=== PATIENT | female | born 1990 | race Caucasian/White ===

== ENCOUNTER 2016-03-13 15:01 | Emergency (ER) | payer OTHER ==
[~2016-03-13] VITALS: Ht 180.3 cm; Wt 171.2 kg
[~2016-03-13 15:01] MED LIST: ABILIFY10 MG PO; AMBIEN CR6.25 MG PO; AMITIZA24 MICROGR PO; ASPIR-LOW81 MG PO; AYGESTIN5 MG PO; BACLOFEN10 MG PO; BENTYL10 MG PO; BENTYL20 MG PO; BUSPAR10 MG PO; CAMILA0.35 MG PO; CATAPRES0.2 MG PO; CITRATE OF MAG296 ML PO; CLARITIN,ALAVAR10 MG PO; CLARITIN-D 21 TABLET PO; COGENTIN0.5 MG PO; COLACE100 MG PO; COUMADIN10 MG PO; COUMADIN7.5 MG PO; DEPAKOTE250 MG PO; DESYREL 150 MG150 MG PO; DESYREL100 MG PO; DILAUDID2 MG PO; EFFEXOR XR150 MG PO; ELIQUIS2.5 MG PO; FANAPT8 MG PO; FIBER SELECT G1 EACH PO; FIBER500 MG PO; FLEXERIL10 MG PO; GABAPENTIN400 MG PO; GABAPENTIN800 MG PO; GEODON40 MG PO; INDERAL20 MG PO; INDERAL60 MG PO; INDOCIN SR75 MG PO; INDOCIN25 MG PO; INDOCIN50 MG PO; KLONOPIN0.5 M1 PO; KLONOPIN1 MG PO; KLONOPIN2 MG PO; LAMICTAL100 MG PO; LAMICTAL200 MG PO; LEVAQUIN750 MG PO; LEVSIN0.125 MG PO; LEXAPRO10 MG PO; LIDODERM 5% P1 PATCH TD; LITHIUM CARBON300 M1 PO; LITHIUM CARBON600 MG PO; LO LOESTRIN FE1 EACH PO; LYRICA50 MG PO; MACROBID100 MG PO; MELATONIN10 M2 PO; MINOCIN100 MG PO; MIRENA52 MG IY; MOBIC15 MG PO; MOBIC7.5 MG PO; MULTI VITAMIN1 EACH PO; MULTIVITAMIN1 EAC2 PO; NALTREXONE HCL50 MG PO; NAPROXEN500 M1 PO; NAPROXEN500 MG PO; NEURONTIN300 MG PO; NICOTINE PATCH1 EAC2 TD; NON-ASPIRIN EX500 MG PO; NORETHINDRONE AC5 MG PO; OMEPRAZOLE40 M1 PO; PAIN & FEVER325 MG PO; PAZEO2.5 ML BOTH EYES; PERCOCET 5/31 TABLET PO; PREDNISONE10 MG PO; PREDNISONE20 MG PO; PRILOSEC20 MG PO; PRILOSEC40 MG PO; PROPRANOLOL HCL60 M1 PO; PROZAC40 MG PO; RESTASIS 01 DROP/0.4 BOTH EYES; RESTORIL15 MG PO; RETIN A TP; SENNA8.6 MG PO; SEROQUEL100 MG PO; SOMA350 MG PO; TEGRETOL-XR,CA200 MG PO; TOPAMAX100 MG PO; TOPAMAX200 MG PO; TOPIRAMATE100 MG PO; TORADOL10 MG PO; TRAZODONE HCL100 MG PO; ULTRAM50 MG PO; VALIUM2 MG PO; VISTARIL25 M1 PO; VITAMIN B-121000 MCG PO; VITAMIN B-122000 MC1 PO; VITAMIN B-6200 MG PO; VITAMIN B12-FO1 EACH PO; VITAMIN D31000 UNIT PO; VITAMIN D32000 UNIT PO; WARFARIN PO; WELLBUTRIN SR150 MG PO; WELLBUTRIN XL150 MG PO; WELLBUTRIN XL300 MG PO; XANAX0.5 MG PO; XARELTO10 MG PO; ZANTAC150 M1 PO; ZANTAC150 MG PO; ZANTAC300 MG PO; ZOFRAN ODT8 MG PO; ZOFRAN4 MG PO; ZOLOFT PO; ZOLOFT100 MG PO; ZYRTEC10 M3 PO
[2016-03-13] MEDS ORDERED: NYSTATIN-TRIAMC15 G1 TP (17:12)
[2016-03-13 17:39] VITALS: BP 133/98
== END 2016-03-13 17:39 | disposition home or self-care (01) ==
LOC: EME 15:01
DX: L30.9 Dermatitis, unspecified (principal); Z87.891 Personal history of nicotine dependence; Z88.6 Allergy status to analgesic agent; Z88.8 Allergy status to other drugs, medicaments and biological substances
CPT/HCPCS: 99281; 99283

== ENCOUNTER 2016-03-25 18:56 | Observation (INO) | payer OTHER ==
[~2016-03-25] VITALS: Ht 181.6 cm; Wt 172.9 kg
[~2016-03-25 18:56] MED LIST changes: +NYSTATIN-TRIAMC15 G1 TP
[2016-03-25 19:53] LABS: HEMATOCRIT 41.8 % (36.0-46.0); MCH 27.9 PG (29.0-34.0); MCHC 34.2 G/DL (30.0-36.0); MCV 81.5 FL (83-99); PLATELET COUNT 195 K/uL (156-360); RBC DIS.WIDTH-SD 37.9 % (39-53); RED BLOOD COUNT 5.13 M/uL (3.80-5.20); WHITE BLOOD COUNT 5.3 K/uL (4.1-10.2)
[2016-03-25 19:57] LABS: ADD MIUA? YES; BILIRUBIN NEGATIVE; BLOOD NEGATIVE; COLOR YELLOW ((YELLOW)); GLUCOSE (STRIP) NEGATIVE; KETONES 5; LEUKOCYTES NEGATIVE; NITRITE NEGATIVE; PROTEIN (STRIP) 30; SPECIFIC GRAVITY 1.032 (1.000-1.030); UROBILINOGEN 0.2 MG/DL (0.2-1.0)
[2016-03-25 20:04] LABS: CHLORIDE 110 mEq/L (99-109); POTASSIUM 4.1 mEq/L (3.7-5.4); SODIUM 138 mEq/L (136-147)
[2016-03-25 20:06] LABS: GLUCOSE 84 mg/dL (70-99)
[2016-03-25 20:08] LABS: ANION GAP 8 MEQ/L (2-14); TOTAL BILIRUBIN 0.3 mg/dL (0.0-1.0)
[2016-03-25 20:10] LABS: ALKALINE PHOSPHATASE 64 IU/L (3-129); GFR ESTIMATE (CALCULATED) > 59 mL/min/
[2016-03-25 20:11] LABS: UREA NITROGEN (BUN) 11 mg/dL (9-23)
[2016-03-25 20:11] LABS: BACTERIA RARE /HPF; CALCIUM OXALATE CRYSTALS 4+ /HPF; CRYSTALS PRESENT; EPITHELIAL CELLS RARE /HPF; HYALINE CASTS 0-5 /LPF; MUCUS 1+ /LPF; RED BLOOD CELLS 0-5 /HPF (0-5); UCUL ADDED? NO
[2016-03-25 20:12] LABS: CASTS PRESENT /LPF
[2016-03-25 20:21] LABS: QUANTITATIVE HCG < 4.0 MIU/ML
[2016-03-25 21:26] LABS: LIPASE 95 U/L (1.0-51.0)
[2016-03-25 21:57] LABS: D-DIMER ELISA 0.39 mg/L FEU (< 0.57)
[2016-03-25 21:58] LABS: TROP-I INTERPRETATION NEGATIVE; TROPONIN-I < 0.01 ng/mL (0.0-0.30)
[2016-03-25 22:21] LABS: PROTHROMBIN TIME 10.6 (9.2-11.2); PTT 29.6 (25-32)
[2016-03-26] MEDS ORDERED: TOPAMAX200 MG PO (01:12)
[2016-03-26] MEDS ORDERED: LIDOCREAM15 GM TP (01:13)
[2016-03-26] MEDS ORDERED: COL-RITE100 M1 PO (01:13)
[2016-03-26] MEDS ORDERED: NAPROXEN500 MG PO (01:14)
[2016-03-26] MEDS ORDERED: PROZAC40 MG PO (01:15)
[2016-03-26] MEDS ORDERED: OMEPRAZOLE20 M2 PO (01:15)
[2016-03-26] MEDS ORDERED: HYOSCYAMINE0.125 MG PO (01:16)
[2016-03-26] MEDS ORDERED: RANITIDINE HCL150 MG PO (01:16)
[2016-03-26] MEDS ORDERED: MELATONIN10 M1 PO (01:17)
[2016-03-26] MEDS ORDERED: CYANOCOBAL1000 MCG/2 IM (01:17)
[2016-03-26] MEDS ORDERED: RETIN-A 0.01%15 GM TP (01:17)
[2016-03-26] MEDS ORDERED: ZYRTEC10 M3 PO (01:18)
[2016-03-26] MEDS ORDERED: XARELTO15 MG PO (01:18)
[2016-03-26] MEDS ORDERED: VISTARIL50 MG PO (01:19)
[2016-03-26] MEDS ORDERED: MIRALAX255 GM PO (01:19)
[2016-03-26] MEDS ORDERED: PRENATAL TABLE1 EAC3 PO (01:20)
[2016-03-26] MEDS ORDERED: VITAMIN D31000 UNI2 PO ×2 (01:20→01:21)
[2016-03-26] MEDS ORDERED: PROBIOTIC1 EAC1 PO (01:20)
[2016-03-26] MEDS ORDERED: RIZATRIPTAN10 MG PO (01:21)
[2016-03-26] MEDS ORDERED: LIDOCAINE HCL35 GM TP (01:22)
[2016-03-26 01:39] LABS: SERUM ETHYL ALCOHOL < 10 mg/dL
[2016-03-26] MEDS ORDERED: BACTRIM,SEPT1 TABLE1 PO (01:41)
[2016-03-26 03:30] LABS: HDL CHOLESTEROL 30 MG/DL (Desirable>=50); LDL CHOLESTEROL 101 mg/dL (Desirable<100); NON-HDL CHOLESTEROL 147 mg/dL (Desirable<160); TOTAL CHOLESTEROL 177 mg/dL (Desirable<200); TRIGLYCERIDES 231 MG/DL (Normal: <150)
[2016-03-26 06:46] LABS: Estimated Average Glucose 100 mg/dL (70-123); HEMOGLOBIN A1c (GLYCOHEMOGLOB) 5.1 % HGB (Below 5.7)
[2016-03-26 07:10] VITALS: BP 112/73
[2016-03-26 09:36] LABS: AMPHETAMINES QUANT VALUE 0 NG/ML; BARBITUATES QUANT VALUE 0 NG/ML; BENZODIAZEPINES QUANT VALUE 0 NG/ML; BENZODIAZEPINES, URINE SCREEN Negative (200 ng/mL); MARIJUANA QUANT VALUE 0 NG/ML; OPIATES QUANTITATIVE VALUE 0 NG/ML; PHENCYCLIDINE QUANT VALUE 0 NG/ML
[2016-03-26 11:19] VITALS: BP 120/63
[2016-03-26] MEDS ORDERED: LIPITOR40 MG PO (12:13)
== END 2016-03-26 20:06 | disposition home or self-care (01) ==
LOC: EME 18:56 → EDOF 03-26 01:02 → 5WEST 03-26 07:09
PROVIDERS: Emergency Medicine
DX: K85.90 Acute pancreatitis without necrosis or infection, unspecified (principal); E78.1 Pure hyperglyceridemia; R10.9 Unspecified abdominal pain; T65.891A Toxic effect of other specified substances, accidental (unintentional), initial encounter; R53.1 Weakness; R47.81 Slurred speech; R23.2 Flushing; Z91.5 Personal history of self-harm; Z86.718 Personal history of other venous thrombosis and embolism; Z86.711 Personal history of pulmonary embolism; Z79.01 Long term (current) use of anticoagulants; Z80.3 Family history of malignant neoplasm of breast; Z82.49 Family history of ischemic heart disease and other diseases of the circulatory system; Z83.49 Family history of other endocrine, nutritional and metabolic diseases; Z82.0 Family history of epilepsy and other diseases of the nervous system; F17.229 Nicotine dependence, chewing tobacco, with unspecified nicotine-induced disorders; Z88.8 Allergy status to other drugs, medicaments and biological substances
CPT/HCPCS: 70450; 70551; 71020; 74176; 76705; 80053; 80061; 80306 90; 81003; 83036; 83690; 84484; 84702; 85027; 85379; 85610; 85730; 93005; 99281; 99285; G0378; G0480; J2060; J2270; J2405; J3420; J7030

== ENCOUNTER 2016-05-25 22:07 | Emergency (ER) | payer OTHER ==
[~2016-05-25] VITALS: Ht 180.3 cm; Wt 168.8 kg
[~2016-05-25 22:07] MED LIST changes: +BACTRIM,SEPT1 TABLE1 PO; +COL-RITE100 M1 PO; +CYANOCOBAL1000 MCG/2 IM; +HYOSCYAMINE0.125 MG PO; +LIDOCAINE HCL35 GM TP; +LIDOCREAM15 GM TP; +LIPITOR40 MG PO; +MELATONIN10 M1 PO; +MIRALAX255 GM PO; +OMEPRAZOLE20 M2 PO; +PRENATAL TABLE1 EAC3 PO; +PROBIOTIC1 EAC1 PO; +RANITIDINE HCL150 MG PO; +RETIN-A 0.01%15 GM TP; +RIZATRIPTAN10 MG PO; +VISTARIL50 MG PO; +VITAMIN D31000 UNI2 PO; +XARELTO15 MG PO
[2016-05-25 23:11] LABS: HEMATOCRIT 36.7 % (36.0-46.0); PLATELET COUNT 161 K/uL (156-360); RBC DIS.WIDTH-CV 13.4 % (11.8-14.6); RED BLOOD COUNT 4.32 M/uL (3.80-5.20); WHITE BLOOD COUNT 4.4 K/uL (4.1-10.2)
[2016-05-25 23:19] LABS: ADD MEDTOX COMMENT Y; AMPHETAMINE NEGATIVE (500 ng/mL); BARBITURATES NEGATIVE (200 ng/mL); BENZODIAZEPINES PRESUMPTIVE POSITIVE (150 ng/mL); COCAINE NEGATIVE (150 ng/mL); INTERNAL CONTROLS VALID? YES; METHADONE NEGATIVE (200 ng/mL); METHAMPHETAMINE NEGATIVE (500 ng/mL); OPIATES (MORPHINE) NEGATIVE (100 ng/mL); OXYCODONE NEGATIVE (100 ng/mL); PHENCYCLIDINE NEGATIVE (25 ng/mL); PROPOXYPHENE NEGATIVE (300 ng/mL); THC CANNABINOIDS NEGATIVE (50 ng/mL); TRICYCLIC ANTIDEPRESSANTS NEGATIVE (300 ng/mL)
[2016-05-25 23:21] LABS: CHLORIDE 117 mEq/L (99-109); POTASSIUM 3.8 mEq/L (3.7-5.4); SODIUM 141 mEq/L (136-147)
[2016-05-25 23:23] LABS: GLUCOSE 91 mg/dL (70-99)
[2016-05-25 23:24] LABS: ANION GAP 7 MEQ/L (2-14)
[2016-05-25 23:26] LABS: SERUM ETHYL ALCOHOL < 10 mg/dL
[2016-05-25 23:27] LABS: GFR ESTIMATE (CALCULATED) > 59 mL/min/
[2016-05-25 23:28] LABS: UREA NITROGEN (BUN) 15 mg/dL (9-23)
[2016-05-25 23:38] LABS: QUANTITATIVE HCG < 4.0 MIU/ML
[2016-05-25] MEDS ORDERED: ATARAX,VISTARIL25 MG PO (23:45)
[2016-05-26 00:14] VITALS: BP 137/80
[2016-05-26 03:29] LABS: BENZODIAZEPINES QUANT VALUE 0 NG/ML
[2016-05-26 03:38] LABS: BENZODIAZEPINES, URINE SCREEN Negative (200 ng/mL)
== END 2016-05-26 00:15 | disposition home or self-care (01) ==
LOC: EME 22:07
PROVIDERS: Emergency Medicine
DX: F41.9 Anxiety disorder, unspecified (principal); Z91.5 Personal history of self-harm; K21.9 Gastro-esophageal reflux disease without esophagitis; R56.9 Unspecified convulsions; Z86.711 Personal history of pulmonary embolism; Z86.718 Personal history of other venous thrombosis and embolism; F17.200 Nicotine dependence, unspecified, uncomplicated
CPT/HCPCS: 80048; 84702; 84999; 85027; 90839; 99281; 99283; G0480

== ENCOUNTER 2016-06-02 21:35 | Emergency (ER) | payer OTHER ==
[~2016-06-02] VITALS: Ht 180.3 cm; Wt 170.7 kg
[~2016-06-02 21:35] MED LIST changes: +ATARAX,VISTARIL25 MG PO
[2016-06-02 21:59] LABS: HEMATOCRIT 39.4 % (36.0-46.0); MCH 28.1 PG (29.0-34.0); MCV 87.9 FL (83-99); MEAN PLAT.VOLUME 9.4 uM^3 (9.5-12.4); PLATELET COUNT 184 K/uL (156-360); RBC DIS.WIDTH-CV 13.6 % (11.8-14.6); RBC DIS.WIDTH-SD 44.2 % (39-53); RED BLOOD COUNT 4.48 M/uL (3.80-5.20); WHITE BLOOD COUNT 6.3 K/uL (4.1-10.2)
[2016-06-02 22:05] LABS: CHLORIDE 113 mEq/L (99-109); POTASSIUM 3.8 mEq/L (3.7-5.4); SODIUM 141 mEq/L (136-147)
[2016-06-02 22:07] LABS: GLUCOSE 73 mg/dL (70-99)
[2016-06-02 22:08] LABS: ANION GAP 10 MEQ/L (2-14)
[2016-06-02 22:09] LABS: TOTAL BILIRUBIN 0.3 mg/dL (0.0-1.0)
[2016-06-02 22:11] LABS: ALKALINE PHOSPHATASE 59 IU/L (3-129); GFR ESTIMATE (CALCULATED) > 59 mL/min/
[2016-06-02 22:12] LABS: UREA NITROGEN (BUN) 15 mg/dL (9-23)
[2016-06-02 22:14] LABS: LIPASE 97 U/L (1.0-51.0)
[2016-06-02 22:20] LABS: QUANTITATIVE HCG < 4.0 MIU/ML
[2016-06-02 22:56] LABS: ADD MIUA? YES; BILIRUBIN NEGATIVE; BLOOD NEGATIVE; COLOR AMBER ((YELLOW)); GLUCOSE (STRIP) NEGATIVE; KETONES 5; LEUKOCYTES NEGATIVE; NITRITE NEGATIVE; PROTEIN (STRIP) 100; SPECIFIC GRAVITY 1.043 (1.000-1.030)
[2016-06-02 23:25] LABS: BACTERIA RARE /HPF; CASTS NONE SEEN /LPF; CRYSTALS PRESENT; EPITHELIAL CELLS RARE /HPF; MUCUS NONE SEEN /LPF; RED BLOOD CELLS NONE SEEN /HPF (0-5); UCUL ADDED? NO; WHITE BLOOD CELLS RARE /HPF (0-5)
[2016-06-02 23:27] LABS: CALCIUM OXALATE CRYSTALS RARE /HPF
[2016-06-03] MEDS ORDERED: LIDOCARE1 EACH TP (00:20)
[2016-06-03 00:29] VITALS: BP 119/87
== END 2016-06-03 00:33 | disposition home or self-care (01) ==
LOC: RME 21:35 → EME 21:35 → RME 06-03 00:33
DX: K59.00 Constipation, unspecified (principal); K64.8 Other hemorrhoids; K64.4 Residual hemorrhoidal skin tags; Z86.711 Personal history of pulmonary embolism; Z86.718 Personal history of other venous thrombosis and embolism; Z79.01 Long term (current) use of anticoagulants; Z90.710 Acquired absence of both cervix and uterus; F17.200 Nicotine dependence, unspecified, uncomplicated
CPT/HCPCS: 80053; 81003; 83690; 84702; 85027; 99281; 99284

== ENCOUNTER 2016-06-06 21:57 | Observation (INO) | payer OTHER ==
[~2016-06-06] VITALS: Ht 182.1 cm; Wt 182.0 kg
[~2016-06-06 21:57] MED LIST changes: +LIDOCARE1 EACH TP
[2016-06-06 22:43] LABS: EOSINOPHIL COUNT 0.2 K/uL (0-0.3); HEMATOCRIT 35.7 % (36.0-46.0); IMMATURE GRANULOCYTE (%) 0.4 % (0.0-0.7); INSTRUMENT ABS NEUTROPHIL CT 1.6 K/uL; LYMPHOCYTE COUNT 2.4 K/uL (1.0-2.8); MCH 27.5 PG (29.0-34.0); MCHC 31.4 G/DL (30.0-36.0); MCV 87.5 FL (83-99); MEAN PLAT.VOLUME 9.4 uM^3 (9.5-12.4); MONOCYTE (%) 6.2 % (3-12); MONOCYTE COUNT 0.3 K/uL (0-0.8); NEUTROPHIL COUNT 1.6 K/uL (1.8-6.4); PLATELET COUNT 156 K/uL (156-360); RBC DIS.WIDTH-CV 13.9 % (11.8-14.6); RBC DIS.WIDTH-SD 44.2 % (39-53); RED BLOOD COUNT 4.08 M/uL (3.80-5.20); WHITE BLOOD COUNT 4.5 K/uL (4.1-10.2)
[2016-06-06 22:52] LABS: CHLORIDE 118 mEq/L (99-109); POTASSIUM 4.1 mEq/L (3.7-5.4); SODIUM 143 mEq/L (136-147)
[2016-06-06 22:53] LABS: GLUCOSE 102 mg/dL (70-99)
[2016-06-06 22:55] LABS: ANION GAP 8 MEQ/L (2-14)
[2016-06-06 22:57] LABS: GFR ESTIMATE (CALCULATED) > 59 mL/min/; SERUM ETHYL ALCOHOL < 10 mg/dL
[2016-06-06 22:59] LABS: UREA NITROGEN (BUN) 15 mg/dL (9-23)
[2016-06-06 23:00] LABS: SALICYLATE < 5.0 MG/DL (15-30)
[2016-06-06 23:06] LABS: QUANTITATIVE HCG < 4.0 MIU/ML
[2016-06-07 03:23] VITALS: BP 104/59
[2016-06-07 08:09] VITALS: BP 103/60
[2016-06-07 08:20] LABS: HEMATOCRIT 36.1 % (36.0-46.0); MCH 27.5 PG (29.0-34.0); MCHC 31.6 G/DL (30.0-36.0); MCV 87.2 FL (83-99); MEAN PLAT.VOLUME 9.7 uM^3 (9.5-12.4); PLATELET COUNT 136 K/uL (156-360); RBC DIS.WIDTH-CV 13.8 % (11.8-14.6); RBC DIS.WIDTH-SD 43.7 % (39-53); RED BLOOD COUNT 4.14 M/uL (3.80-5.20); WHITE BLOOD COUNT 4.6 K/uL (4.1-10.2)
[2016-06-07 08:42] LABS: GFR ESTIMATE (CALCULATED) > 59 mL/min/; GLUCOSE 101 mg/dL (70-99); POTASSIUM 4.1 MEQ/L (3.7-5.4); SODIUM 141 MEQ/L (136-147); UREA NITROGEN (BUN) 12 mg/dL (9-23)
[2016-06-07 08:43] LABS: ANION GAP 7 MEQ/L (2-14); CHLORIDE 117 MEQ/L (99-109); SAMPLE HEMOLYSIS CHECK 0; SAMPLE ICTERIC CHECK 0; SAMPLE LIPEMIA CHECK 0
[2016-06-07 11:23] VITALS: BP 102/55
[2016-06-07 15:00] VITALS: BP 99/58
[2016-06-07] MEDS ORDERED: Tylenol Extra Streng PO (16:36)
== END 2016-06-07 17:55 | disposition home or self-care (01) ==
LOC: EME 21:57 → EDOF 06-07 01:47 → 5WEST 06-07 03:03
PROVIDERS: Emergency Medicine; Nurse Practitioner Adult Health
DX: T42.4X2A Poisoning by benzodiazepines, intentional self-harm, initial encounter (principal); Y92.9 Unspecified place or not applicable; G89.29 Other chronic pain; M54.9 Dorsalgia, unspecified; F17.200 Nicotine dependence, unspecified, uncomplicated; G43.909 Migraine, unspecified, not intractable, without status migrainosus; R00.1 Bradycardia, unspecified; K21.9 Gastro-esophageal reflux disease without esophagitis; K58.9 Irritable bowel syndrome, unspecified; E66.3 Overweight; F33.9 Major depressive disorder, recurrent, unspecified; F60.3 Borderline personality disorder; R10.9 Unspecified abdominal pain; F41.9 Anxiety disorder, unspecified
CPT/HCPCS: 80048; 81003; 84702; 85025; 85027; 93005; 99281; 99285; G0378; G0480; J2310; J7030

== ENCOUNTER 2016-06-19 12:45 | Emergency (ER) | payer OTHER ==
[~2016-06-19] VITALS: Ht 180.3 cm; Wt 170.1 kg
[~2016-06-19 12:45] MED LIST changes: +Tylenol Extra Streng PO; +ZOFRAN ODT4 MG PO
[2016-06-19 13:34] LABS: AMPHETAMINE NEGATIVE (500 ng/mL); BARBITURATES NEGATIVE (200 ng/mL); BENZODIAZEPINES PRESUMPTIVE POSITIVE (150 ng/mL); COCAINE NEGATIVE (150 ng/mL); METHADONE NEGATIVE (200 ng/mL); METHAMPHETAMINE NEGATIVE (500 ng/mL); OPIATES (MORPHINE) PRESUMPTIVE POSITIVE (100 ng/mL); OXYCODONE PRESUMPTIVE POSITIVE (100 ng/mL); PHENCYCLIDINE NEGATIVE (25 ng/mL); PROPOXYPHENE NEGATIVE (300 ng/mL); THC CANNABINOIDS NEGATIVE (50 ng/mL); TRICYCLIC ANTIDEPRESSANTS NEGATIVE (300 ng/mL)
[2016-06-19 13:35] LABS: ADD MEDTOX COMMENT Y; INTERNAL CONTROLS VALID? YES
[2016-06-19 14:03] LABS: BENZODIAZEPINES QUANT VALUE 0 NG/ML; BENZODIAZEPINES, URINE SCREEN Negative (200 ng/mL)
[2016-06-19 14:39] LABS: HEMATOCRIT 40.1 % (36.0-46.0); MCH 28.4 PG (29.0-34.0); MCHC 32.7 G/DL (30.0-36.0); MCV 86.8 FL (83-99); MEAN PLAT.VOLUME 9.8 uM^3 (9.5-12.4); PLATELET COUNT 176 K/uL (156-360); RBC DIS.WIDTH-CV 13.8 % (11.8-14.6); RBC DIS.WIDTH-SD 43.1 % (39-53); RED BLOOD COUNT 4.62 M/uL (3.80-5.20); WHITE BLOOD COUNT 6.3 K/uL (4.1-10.2)
[2016-06-19 14:43] LABS: CHLORIDE 118 mEq/L (99-109); POTASSIUM 4.4 mEq/L (3.7-5.4); SODIUM 140 mEq/L (136-147)
[2016-06-19 14:45] LABS: GLUCOSE 104 mg/dL (70-99)
[2016-06-19 14:46] LABS: ANION GAP 8 MEQ/L (2-14)
[2016-06-19 14:48] LABS: SERUM ETHYL ALCOHOL < 10 mg/dL
[2016-06-19 14:49] LABS: GFR ESTIMATE (CALCULATED) > 59 mL/min/
[2016-06-19 14:50] LABS: UREA NITROGEN (BUN) 16 mg/dL (9-23)
[2016-06-19 15:48] LABS: TOTAL BILIRUBIN 0.3 mg/dL (0.0-1.0)
[2016-06-19 15:49] LABS: ALKALINE PHOSPHATASE 55 IU/L (3-129)
[2016-06-19 15:52] LABS: LIPASE 70 U/L (1.0-51.0)
[2016-06-19 16:29] LABS: CHLORIDE 118 mEq/L (99-109); POTASSIUM 4.3 mEq/L (3.7-5.4); SODIUM 141 mEq/L (136-147)
[2016-06-19 16:32] LABS: GLUCOSE 109 mg/dL (70-99)
[2016-06-19 16:33] LABS: ANION GAP 6 MEQ/L (2-14)
[2016-06-19 16:34] LABS: TOTAL BILIRUBIN 0.3 mg/dL (0.0-1.0)
[2016-06-19 16:35] LABS: ALKALINE PHOSPHATASE 55 IU/L (3-129); GFR ESTIMATE (CALCULATED) > 59 mL/min/
[2016-06-19 16:36] LABS: UREA NITROGEN (BUN) 17 mg/dL (9-23)
[2016-06-19 17:05] VITALS: BP 128/67
[2016-06-20] MEDS ORDERED: CATAPRES-TTS 11 EACH TD (22:59)
[2016-06-20] MEDS ORDERED: IMODIUM A-D2 M2 PO (22:59)
== END 2016-06-19 17:08 | disposition home or self-care (01) ==
LOC: EME 12:45
PROVIDERS: Emergency Medicine
DX: F33.2 Major depressive disorder, recurrent severe without psychotic features (principal); F41.9 Anxiety disorder, unspecified; F43.10 Post-traumatic stress disorder, unspecified; F60.3 Borderline personality disorder; Z86.711 Personal history of pulmonary embolism; Z86.718 Personal history of other venous thrombosis and embolism; Z79.01 Long term (current) use of anticoagulants; Z90.710 Acquired absence of both cervix and uterus; F17.200 Nicotine dependence, unspecified, uncomplicated
CPT/HCPCS: 80048; 80053; 83690; 84999; 85027; 90839; 99281; 99283; G0480

== ENCOUNTER 2016-06-20 21:54 | Emergency (ER) | payer OTHER ==
[~2016-06-20] VITALS: Ht 182.9 cm; Wt 170.6 kg
[2016-06-20] MEDS ORDERED: IMODIUM A-D2 M2 PO (22:59)
[2016-06-20] MEDS ORDERED: CATAPRES-TTS 11 EACH TD (22:59)
[2016-06-20 23:16] VITALS: BP 100/73
== END 2016-06-20 23:24 | disposition home or self-care (01) ==
LOC: EME 21:54
DX: F11.23 Opioid dependence with withdrawal (principal); M79.1 Myalgia; T40.2X5A Adverse effect of other opioids, initial encounter; Z86.711 Personal history of pulmonary embolism; Z86.718 Personal history of other venous thrombosis and embolism; Z79.01 Long term (current) use of anticoagulants; F17.200 Nicotine dependence, unspecified, uncomplicated
CPT/HCPCS: 99281; 99284

== ENCOUNTER 2016-06-22 20:52 | Emergency (ER) | payer OTHER ==
[~2016-06-22] VITALS: Ht 182.9 cm; Wt 169.6 kg
[~2016-06-22 20:52] MED LIST changes: +CATAPRES-TTS 11 EACH TD; +IMODIUM A-D2 M2 PO
[2016-06-22 22:05] LABS: HEMATOCRIT 37.4 % (36.0-46.0); MCH 27.9 PG (29.0-34.0); MCHC 31.8 G/DL (30.0-36.0); MCV 87.6 FL (83-99); MEAN PLAT.VOLUME 9.7 uM^3 (9.5-12.4); PLATELET COUNT 162 K/uL (156-360); RBC DIS.WIDTH-CV 14.2 % (11.8-14.6); RED BLOOD COUNT 4.27 M/uL (3.80-5.20); WHITE BLOOD COUNT 5.6 K/uL (4.1-10.2)
[2016-06-22 22:18] LABS: CHLORIDE 115 mEq/L (99-109); SODIUM 140 mEq/L (136-147)
[2016-06-22 22:20] LABS: GLUCOSE 82 mg/dL (70-99)
[2016-06-22 22:21] LABS: ANION GAP 9 MEQ/L (2-14)
[2016-06-22 22:22] LABS: TOTAL BILIRUBIN 0.3 mg/dL (0.0-1.0)
[2016-06-22 22:23] LABS: ALKALINE PHOSPHATASE 50 IU/L (3-129)
[2016-06-22 22:24] LABS: GFR ESTIMATE (CALCULATED) > 59 mL/min/
[2016-06-22 22:25] LABS: UREA NITROGEN (BUN) 19 mg/dL (9-23)
[2016-06-22 22:27] LABS: LIPASE 114 U/L (1.0-51.0)
[2016-06-22 22:31] LABS: ADD MIUA? YES; BILIRUBIN SMALL; BLOOD NEGATIVE; COLOR YELLOW ((YELLOW)); GLUCOSE (STRIP) NEGATIVE; KETONES NEGATIVE; LEUKOCYTES NEGATIVE; NITRITE NEGATIVE; PROTEIN (STRIP) 30; SPECIFIC GRAVITY 1.032 (1.000-1.030); UROBILINOGEN 0.2 MG/DL (0.2-1.0)
[2016-06-22 22:33] LABS: QUANTITATIVE HCG < 4.0 MIU/ML
[2016-06-22 22:38] LABS: BACTERIA NONE SEEN /HPF; EPITHELIAL CELLS RARE /HPF; MUCUS TRACE /LPF; RED BLOOD CELLS 0-5 /HPF (0-5); UCUL ADDED? NO; WHITE BLOOD CELLS 0-5 /HPF (0-5)
[2016-06-23 00:20] VITALS: BP 113/67
== END 2016-06-23 00:21 | disposition home or self-care (01) ==
LOC: EME 20:52
PROVIDERS: Physician Assistant
DX: G89.29 Other chronic pain (principal); R10.9 Unspecified abdominal pain; K59.00 Constipation, unspecified; R11.0 Nausea; Z79.891 Long term (current) use of opiate analgesic; Z86.711 Personal history of pulmonary embolism; Z86.718 Personal history of other venous thrombosis and embolism; Z79.01 Long term (current) use of anticoagulants; F17.200 Nicotine dependence, unspecified, uncomplicated
CPT/HCPCS: 74020; 80053; 81003; 83690; 84702; 85027; 99281; 99284; J2270; J2405; J7030

== ENCOUNTER 2016-09-05 15:48 | Emergency (ER) | payer OTHER ==
[~2016-09-05] VITALS: Ht 180.3 cm; Wt 169.2 kg
[2016-09-05 16:45] LABS: HEMATOCRIT 39.3 % (36.0-46.0); MCH 29.6 PG (29.0-34.0); MCHC 32.6 G/DL (30.0-36.0); MCV 90.8 FL (83-99); MEAN PLAT.VOLUME 9.1 uM^3 (9.5-12.4); PLATELET COUNT 187 K/uL (156-360); RBC DIS.WIDTH-CV 13.2 % (11.8-14.6); RBC DIS.WIDTH-SD 43.8 % (39-53); RED BLOOD COUNT 4.33 M/uL (3.80-5.20); WHITE BLOOD COUNT 4.9 K/uL (4.1-10.2)
[2016-09-05 16:56] LABS: CHLORIDE 113 mEq/L (99-109); POTASSIUM 3.5 mEq/L (3.7-5.4); SODIUM 139 mEq/L (136-147)
[2016-09-05 16:58] LABS: GLUCOSE 75 mg/dL (70-99)
[2016-09-05 17:00] LABS: ANION GAP 5 MEQ/L (2-14); TOTAL BILIRUBIN 0.4 mg/dL (0.0-1.0)
[2016-09-05 17:02] LABS: ALKALINE PHOSPHATASE 68 IU/L (3-129); GFR ESTIMATE (CALCULATED) > 59 mL/min/
[2016-09-05 17:03] LABS: UREA NITROGEN (BUN) 9 mg/dL (9-23)
[2016-09-05 17:05] LABS: LIPASE 17 U/L (1.0-51.0)
[2016-09-05 17:11] LABS: QUANTITATIVE HCG < 4.0 MIU/ML
[2016-09-05 17:12] LABS: ADD MIUA? YES; BILIRUBIN NEGATIVE; BLOOD NEGATIVE; COLOR YELLOW ((YELLOW)); GLUCOSE (STRIP) NEGATIVE; KETONES NEGATIVE; LEUKOCYTES NEGATIVE; NITRITE NEGATIVE; PROTEIN (STRIP) NEGATIVE; SPECIFIC GRAVITY 1.013 (1.000-1.030); UROBILINOGEN 0.2 MG/DL (0.2-1.0)
[2016-09-05 17:31] LABS: BACTERIA 2+ /HPF; EPITHELIAL CELLS 1+ /HPF; MUCUS TRACE /LPF; RED BLOOD CELLS 0-5 /HPF (0-5); UCUL ADDED? NO; WHITE BLOOD CELLS 0-5 /HPF (0-5)
[2016-09-05] MEDS ORDERED: ZOFRAN ODT4 MG PO (18:05)
[2016-09-05] MEDS ORDERED: BENTYL20 MG PO (18:05)
[2016-09-05] MEDS ORDERED: MIRALAX255 GM PO (18:05)
[2016-09-05 18:24] VITALS: BP 115/68
[2016-09-06] MEDS ORDERED: PROMETHAZINE HC25 M1 PO (07:06)
== END 2016-09-05 18:35 | disposition home or self-care (01) ==
LOC: EME 15:48 → EXP 15:48
DX: K29.70 Gastritis, unspecified, without bleeding (principal); K59.00 Constipation, unspecified; E87.6 Hypokalemia; K86.2 Cyst of pancreas; Z90.49 Acquired absence of other specified parts of digestive tract; Z90.710 Acquired absence of both cervix and uterus; Z90.721 Acquired absence of ovaries, unilateral; K44.9 Diaphragmatic hernia without obstruction or gangrene; L03.113 Cellulitis of right upper limb; Z86.718 Personal history of other venous thrombosis and embolism; Z86.711 Personal history of pulmonary embolism; Z79.01 Long term (current) use of anticoagulants; F17.200 Nicotine dependence, unspecified, uncomplicated
CPT/HCPCS: 80053; 81003; 83690; 84702; 85027; 99281; 99284

== ENCOUNTER 2016-09-06 04:40 | Emergency (ER) | payer OTHER ==
[~2016-09-06] VITALS: Ht 180.3 cm; Wt 170.5 kg
[2016-09-06 05:36] LABS: ADD MIUA? YES; BILIRUBIN NEGATIVE; BLOOD NEGATIVE; COLOR YELLOW ((YELLOW)); GLUCOSE (STRIP) NEGATIVE; KETONES NEGATIVE; LEUKOCYTES NEGATIVE; NITRITE NEGATIVE; PROTEIN (STRIP) NEGATIVE; SPECIFIC GRAVITY 1.015 (1.000-1.030); UROBILINOGEN 0.2 MG/DL (0.2-1.0)
[2016-09-06 05:44] LABS: BACTERIA RARE /HPF; EPITHELIAL CELLS 1+ /HPF; MUCUS TRACE /LPF; RED BLOOD CELLS 0-5 /HPF (0-5); UCUL ADDED? NO; WHITE BLOOD CELLS 0-5 /HPF (0-5)
[2016-09-06 05:53] LABS: CHLORIDE 111 mEq/L (99-109); POTASSIUM 3.5 mEq/L (3.7-5.4); SODIUM 141 mEq/L (136-147)
[2016-09-06 05:56] LABS: GLUCOSE 78 mg/dL (70-99)
[2016-09-06 05:57] LABS: ANION GAP 7 MEQ/L (2-14)
[2016-09-06 05:58] LABS: TOTAL BILIRUBIN 0.4 mg/dL (0.0-1.0)
[2016-09-06 05:59] LABS: ALKALINE PHOSPHATASE 66 IU/L (3-129); GFR ESTIMATE (CALCULATED) > 59 mL/min/
[2016-09-06 06:00] LABS: UREA NITROGEN (BUN) 11 mg/dL (9-23)
[2016-09-06 06:03] LABS: LIPASE 24 U/L (1.0-51.0)
[2016-09-06 06:08] LABS: QUANTITATIVE HCG < 4.0 MIU/ML
[2016-09-06 06:12] LABS: EOSINOPHIL (%) 2.3 % (0-5); EOSINOPHIL COUNT 0.2 K/uL (0-0.3); HEMATOCRIT 39.5 % (36.0-46.0); IMMATURE GRANULOCYTE (%) 0.5 % (0.0-0.7); INSTRUMENT ABS NEUTROPHIL CT 4.5 K/uL; LYMPHOCYTE COUNT 2.4 K/uL (1.0-2.8); MCH 29.3 PG (29.0-34.0); MCHC 32.2 G/DL (30.0-36.0); MEAN PLAT.VOLUME 9.6 uM^3 (9.5-12.4); MONOCYTE (%) 5.6 % (3-12); MONOCYTE COUNT 0.4 K/uL (0-0.8); NEUTROPHIL COUNT 4.5 K/uL (1.8-6.4); PLATELET COUNT 200 K/uL (156-360); RBC DIS.WIDTH-CV 13.2 % (11.8-14.6); RBC DIS.WIDTH-SD 44.5 % (39-53); RED BLOOD COUNT 4.34 M/uL (3.80-5.20); WHITE BLOOD COUNT 7.6 K/uL (4.1-10.2)
[2016-09-06] MEDS ORDERED: PROMETHAZINE HC25 M1 PO (07:06)
[2016-09-06 07:28] VITALS: BP 107/59
== END 2016-09-06 08:05 | disposition home or self-care (01) ==
LOC: EME 04:40
PROVIDERS: Emergency Medicine
DX: R10.84 Generalized abdominal pain (principal); G89.29 Other chronic pain; K21.9 Gastro-esophageal reflux disease without esophagitis; F32.9 Major depressive disorder, single episode, unspecified; F41.9 Anxiety disorder, unspecified; F60.3 Borderline personality disorder; F11.20 Opioid dependence, uncomplicated; F17.200 Nicotine dependence, unspecified, uncomplicated; Z86.718 Personal history of other venous thrombosis and embolism; Z86.711 Personal history of pulmonary embolism; Z79.01 Long term (current) use of anticoagulants; Z90.710 Acquired absence of both cervix and uterus
CPT/HCPCS: 74177; 80053; 81003; 83690; 84702; 85025; 99281; 99285; J0500; J2405; J3010; J7030

== ENCOUNTER 2016-09-28 19:12 | Emergency (ER) | payer OTHER ==
[~2016-09-28] VITALS: Ht 180.3 cm; Wt 177.5 kg
[~2016-09-28 19:12] MED LIST changes: +PROMETHAZINE HC25 M1 PO
[2016-09-28 19:45] LABS: ADD MIUA? YES; BILIRUBIN NEGATIVE; BLOOD NEGATIVE; COLOR YELLOW ((YELLOW)); GLUCOSE (STRIP) NEGATIVE; KETONES NEGATIVE; LEUKOCYTES NEGATIVE; NITRITE NEGATIVE; PROTEIN (STRIP) NEGATIVE; SPECIFIC GRAVITY 1.026 (1.000-1.030); UROBILINOGEN 0.2 MG/DL (0.2-1.0)
[2016-09-28 20:19] LABS: BACTERIA 1+ /HPF; EPITHELIAL CELLS 1+ /HPF; MUCUS NONE SEEN /LPF; RED BLOOD CELLS NONE SEEN /HPF (0-5); UCUL ADDED? NO; WHITE BLOOD CELLS RARE /HPF (0-5)
[2016-09-28 20:20] LABS: CASTS NONE SEEN /LPF; CRYSTALS NONE SEEN
[2016-09-28 20:45] LABS: HEMATOCRIT 37.9 % (36.0-46.0); MCH 29.5 PG (29.0-34.0); MCHC 32.2 G/DL (30.0-36.0); MCV 91.5 FL (83-99); MEAN PLAT.VOLUME 9.9 uM^3 (9.5-12.4); PLATELET COUNT 165 K/uL (156-360); RBC DIS.WIDTH-CV 14.1 % (11.8-14.6); RBC DIS.WIDTH-SD 47.9 % (39-53); RED BLOOD COUNT 4.14 M/uL (3.80-5.20); WHITE BLOOD COUNT 7.3 K/uL (4.1-10.2)
[2016-09-28 20:56] LABS: CHLORIDE 115 mEq/L (99-109); POTASSIUM 3.9 mEq/L (3.7-5.4); SODIUM 142 mEq/L (136-147)
[2016-09-28 20:58] LABS: GLUCOSE 80 mg/dL (70-99)
[2016-09-28 20:59] LABS: ANION GAP 8 MEQ/L (2-14)
[2016-09-28 21:00] LABS: TOTAL BILIRUBIN 0.3 mg/dL (0.0-1.0)
[2016-09-28 21:02] LABS: ALKALINE PHOSPHATASE 57 IU/L (3-129); GFR ESTIMATE (CALCULATED) > 59 mL/min/
[2016-09-28 21:03] LABS: UREA NITROGEN (BUN) 21 mg/dL (9-23)
[2016-09-28 21:11] LABS: QUANTITATIVE HCG < 4.0 MIU/ML
[2016-09-28 21:32] LABS: AMPHETAMINE NEGATIVE (500 ng/mL); BARBITURATES NEGATIVE (200 ng/mL); BENZODIAZEPINES PRESUMPTIVE POSITIVE (150 ng/mL); COCAINE NEGATIVE (150 ng/mL); INTERNAL CONTROLS VALID? YES; METHADONE NEGATIVE (200 ng/mL); METHAMPHETAMINE NEGATIVE (500 ng/mL); OPIATES (MORPHINE) NEGATIVE (100 ng/mL); OXYCODONE NEGATIVE (100 ng/mL); PHENCYCLIDINE NEGATIVE (25 ng/mL); PROPOXYPHENE NEGATIVE (300 ng/mL); THC CANNABINOIDS NEGATIVE (50 ng/mL); TRICYCLIC ANTIDEPRESSANTS NEGATIVE (300 ng/mL)
[2016-09-28 21:32] LABS: CREATINE KINASE 121 IU/L (1-294); LIPASE 49 U/L (1.0-51.0)
[2016-09-28 21:35] LABS: ADD MEDTOX COMMENT Y
[2016-09-28 22:01] LABS: BENZODIAZEPINES QUANT VALUE 0 NG/ML; BENZODIAZEPINES, URINE SCREEN Negative (200 ng/mL)
[2016-09-29] MEDS ORDERED: MIRALAX255 GM PO (00:15)
[2016-09-29 00:58] VITALS: BP 109/82
[2016-09-30] MEDS ORDERED: ALLEGRA60 MG PO (21:20)
[2016-09-30] MEDS ORDERED: HYOSCYAMINE0.125 MG PO (21:21)
[2016-09-30] MEDS ORDERED: IMODIUM A-D2 M2 PO (21:24)
[2016-09-30] MEDS ORDERED: PROAIR HFA8.5 GM IH (21:27)
[2016-09-30] MEDS ORDERED: FLUTICASONE PRO16 GM BOTH NARES (21:27)
[2016-09-30] MEDS ORDERED: DESYREL100 MG PO (21:28)
[2016-09-30] MEDS ORDERED: BACLOFEN20 MG PO (21:29)
== END 2016-09-29 01:15 | disposition home or self-care (01) ==
LOC: EME 19:12
PROVIDERS: Physician Assistant
DX: K59.00 Constipation, unspecified (principal); M79.1 Myalgia; R60.0 Localized edema; R06.83 Snoring; K21.9 Gastro-esophageal reflux disease without esophagitis; Z86.711 Personal history of pulmonary embolism; Z86.718 Personal history of other venous thrombosis and embolism; F17.200 Nicotine dependence, unspecified, uncomplicated
CPT/HCPCS: 74022; 80053; 81003; 82550; 83690; 83880; 84702; 84999; 85027; 87086; 99281; 99285

== ENCOUNTER 2016-09-30 19:32 | Emergency (ER) | payer OTHER ==
[~2016-09-30] VITALS: Ht 180.3 cm; Wt 175.0 kg
[2016-09-30 20:01] LABS: HEMATOCRIT 38.1 % (36.0-46.0); MCH 29.2 PG (29.0-34.0); MCHC 31.2 G/DL (30.0-36.0); MCV 93.4 FL (83-99); MEAN PLAT.VOLUME 9.3 uM^3 (9.5-12.4); PLATELET COUNT 170 K/uL (156-360); RBC DIS.WIDTH-CV 14.3 % (11.8-14.6); RBC DIS.WIDTH-SD 48.4 % (39-53); RED BLOOD COUNT 4.08 M/uL (3.80-5.20); WHITE BLOOD COUNT 6.3 K/uL (4.1-10.2)
[2016-09-30 20:06] LABS: CHLORIDE 115 mEq/L (99-109); POTASSIUM 4.4 mEq/L (3.7-5.4); SODIUM 142 mEq/L (136-147)
[2016-09-30 20:07] LABS: GLUCOSE 73 mg/dL (70-99)
[2016-09-30 20:09] LABS: ANION GAP 7 MEQ/L (2-14)
[2016-09-30 20:11] LABS: GFR ESTIMATE (CALCULATED) > 59 mL/min/
[2016-09-30 20:12] LABS: UREA NITROGEN (BUN) 12 mg/dL (9-23)
[2016-09-30 20:17] LABS: TROP-I INTERPRETATION NEGATIVE; TROPONIN-I < 0.01 ng/mL (0.0-0.30)
[2016-09-30] MEDS ORDERED: ALLEGRA60 MG PO (21:20)
[2016-09-30] MEDS ORDERED: HYOSCYAMINE0.125 MG PO (21:21)
[2016-09-30] MEDS ORDERED: IMODIUM A-D2 M2 PO (21:24)
[2016-09-30] MEDS ORDERED: FLUTICASONE PRO16 GM BOTH NARES (21:27)
[2016-09-30] MEDS ORDERED: PROAIR HFA8.5 GM IH (21:27)
[2016-09-30] MEDS ORDERED: DESYREL100 MG PO (21:28)
[2016-09-30] MEDS ORDERED: BACLOFEN20 MG PO (21:29)
[2016-09-30 22:56] LABS: D-DIMER ELISA < 150.00 ng/mLDDU (<230)
[2016-10-01 01:07] VITALS: BP 120/74
== END 2016-10-01 01:10 | disposition home or self-care (01) ==
LOC: EME 19:32
DX: R60.0 Localized edema (principal); R07.89 Other chest pain; R42 Dizziness and giddiness; R06.00 Dyspnea, unspecified; Z86.718 Personal history of other venous thrombosis and embolism; Z86.711 Personal history of pulmonary embolism; Z79.01 Long term (current) use of anticoagulants; Z90.710 Acquired absence of both cervix and uterus; F17.200 Nicotine dependence, unspecified, uncomplicated
CPT/HCPCS: 71020; 80048; 84484; 85027; 85379; 93005; 93970; 99281; 99285

== ENCOUNTER 2016-10-20 17:12 | Emergency (ER) | payer OTHER ==
[~2016-10-20] VITALS: Ht 180.3 cm; Wt 166.6 kg
[~2016-10-20 17:12] MED LIST changes: +ALLEGRA60 MG PO; +BACLOFEN20 MG PO; +FLUTICASONE PRO16 GM BOTH NARES; +PROAIR HFA8.5 GM IH
[2016-10-20] MEDS ORDERED: CATAPRES0.2 MG PO (20:05)
[2016-10-20 20:15] VITALS: BP 114/71
== END 2016-10-20 20:24 | disposition home or self-care (01) ==
LOC: EXP 17:12 → EME 17:12 → EXP 20:24
DX: F41.9 Anxiety disorder, unspecified (principal); K21.9 Gastro-esophageal reflux disease without esophagitis; R56.9 Unspecified convulsions; Z86.711 Personal history of pulmonary embolism; Z86.718 Personal history of other venous thrombosis and embolism; F17.200 Nicotine dependence, unspecified, uncomplicated
CPT/HCPCS: 99281; 99283; J2405

== ENCOUNTER 2016-10-23 17:04 | Emergency (ER) | payer OTHER ==
[~2016-10-23] VITALS: Ht 181.6 cm; Wt 168.0 kg
[2016-10-23] MEDS ORDERED: CATAPRES0.1 MG PO (18:28)
[2016-10-23 18:41] VITALS: BP 108/71
== END 2016-10-23 18:42 | disposition home or self-care (01) ==
LOC: EME 17:04
DX: R42 Dizziness and giddiness (principal); R03.1 Nonspecific low blood-pressure reading; R11.0 Nausea; T46.5X5A Adverse effect of other antihypertensive drugs, initial encounter; F41.9 Anxiety disorder, unspecified; Z90.710 Acquired absence of both cervix and uterus; Z86.718 Personal history of other venous thrombosis and embolism; Z86.711 Personal history of pulmonary embolism; Z79.01 Long term (current) use of anticoagulants; F17.200 Nicotine dependence, unspecified, uncomplicated
CPT/HCPCS: 93005; 99281; 99284

== ENCOUNTER 2016-11-04 12:31 | Emergency (ER) | payer OTHER ==
[~2016-11-04] VITALS: Ht 180.3 cm; Wt 106.0 kg
[~2016-11-04 12:31] MED LIST changes: +CATAPRES0.1 MG PO
[2016-11-04] MEDS ORDERED: ROBAXIN750 MG PO (13:39)
[2016-11-04] MEDS ORDERED: MEDROL DOSEPAK4 MG PO (13:39)
[2016-11-04] MEDS ORDERED: NORCO 5/3251 TABLET PO (13:39)
[2016-11-04 14:11] VITALS: BP 92/59
== END 2016-11-04 14:12 | disposition home or self-care (01) ==
LOC: EME 12:31
DX: M25.511 Pain in right shoulder (principal); G89.29 Other chronic pain; M54.2 Cervicalgia; Z86.711 Personal history of pulmonary embolism; Z79.01 Long term (current) use of anticoagulants
CPT/HCPCS: 99281; 99284

== ENCOUNTER 2016-12-19 16:12 | Emergency (ER) | payer OTHER ==
[~2016-12-19] VITALS: Ht 180.3 cm; Wt 168.6 kg
[~2016-12-19 16:12] MED LIST changes: +MEDROL DOSEPAK4 MG PO; +NORCO 5/3251 TABLET PO; +ROBAXIN750 MG PO
[2016-12-19 20:36] LABS: HEMATOCRIT 39.9 % (36.0-46.0); MCH 30.1 PG (29.0-34.0); MCHC 33.3 G/DL (30.0-36.0); MCV 90.3 FL (83-99); MEAN PLAT.VOLUME 9.3 uM^3 (9.5-12.4); PLATELET COUNT 163 K/uL (156-360); RBC DIS.WIDTH-SD 42.9 % (39-53); RED BLOOD COUNT 4.42 M/uL (3.80-5.20)
[2016-12-19 20:38] LABS: ADD MIUA? YES; BILIRUBIN NEGATIVE; BLOOD NEGATIVE; COLOR AMBER ((YELLOW)); GLUCOSE (STRIP) NEGATIVE; KETONES 5; LEUKOCYTES NEGATIVE; NITRITE NEGATIVE; PROTEIN (STRIP) 30; SPECIFIC GRAVITY 1.029 (1.000-1.030)
[2016-12-19 20:45] LABS: BACTERIA NONE SEEN /HPF; CALCIUM OXALATE CRYSTALS 4+ /HPF; EPITHELIAL CELLS RARE /HPF; HYALINE CASTS 0-5 /LPF; MUCUS 2+ /LPF; RED BLOOD CELLS 0-5 /HPF (0-5); UCUL ADDED? NO; WHITE BLOOD CELLS 0-5 /HPF (0-5)
[2016-12-19 21:07] LABS: CHLORIDE 115 mEq/L (99-109); POTASSIUM 3.8 mEq/L (3.7-5.4); SODIUM 138 mEq/L (136-147)
[2016-12-19 21:08] LABS: GLUCOSE 100 mg/dL (70-99)
[2016-12-19 21:10] LABS: ANION GAP 5 MEQ/L (2-14)
[2016-12-19 21:12] LABS: GFR ESTIMATE (CALCULATED) > 59 mL/min/
[2016-12-19 21:13] LABS: UREA NITROGEN (BUN) 15 mg/dL (9-23)
[2016-12-19 21:21] LABS: QUANTITATIVE HCG < 4.0 MIU/ML
[2016-12-19] MEDS ORDERED: BENTYL10 MG PO (21:32)
[2016-12-19] MEDS ORDERED: COLACE100 MG PO (21:32)
[2016-12-19] MEDS ORDERED: PROMETHAZINE HC25 M1 PO (22:33)
[2016-12-19] MEDS ORDERED: PERCOCET 5/31 TABLET PO (22:38)
[2016-12-19 22:39] VITALS: BP 107/57
== END 2016-12-19 22:50 | disposition home or self-care (01) ==
LOC: EME 16:12
PROVIDERS: Physician Assistant
DX: R10.9 Unspecified abdominal pain (principal); K21.9 Gastro-esophageal reflux disease without esophagitis; F32.9 Major depressive disorder, single episode, unspecified; G43.909 Migraine, unspecified, not intractable, without status migrainosus; R56.9 Unspecified convulsions; F41.9 Anxiety disorder, unspecified; Z86.718 Personal history of other venous thrombosis and embolism; Z86.711 Personal history of pulmonary embolism; F17.200 Nicotine dependence, unspecified, uncomplicated; Z88.8 Allergy status to other drugs, medicaments and biological substances
CPT/HCPCS: 80048; 81003; 84702; 85027; 99281; 99284

== ENCOUNTER 2017-01-09 12:39 | Emergency (ER) | payer OTHER ==
[~2017-01-09] VITALS: Ht 180.3 cm; Wt 172.0 kg
[2017-01-09 13:15] LABS: HEMATOCRIT 42.5 % (36.0-46.0); MCHC 32.9 G/DL (30.0-36.0); MCV 91.2 FL (83-99); MEAN PLAT.VOLUME 8.9 uM^3 (9.5-12.4); PLATELET COUNT 187 K/uL (156-360); RBC DIS.WIDTH-CV 13.3 % (11.8-14.6); RED BLOOD COUNT 4.66 M/uL (3.80-5.20); WHITE BLOOD COUNT 5.4 K/uL (4.1-10.2)
[2017-01-09 13:20] LABS: ADD MIUA? YES; BILIRUBIN NEGATIVE; BLOOD NEGATIVE; COLOR AMBER ((YELLOW)); GLUCOSE (STRIP) NEGATIVE; KETONES NEGATIVE; LEUKOCYTES NEGATIVE; NITRITE NEGATIVE; PROTEIN (STRIP) 30
[2017-01-09 13:24] LABS: CHLORIDE 116 mEq/L (99-109); POTASSIUM 4.1 mEq/L (3.7-5.4); SODIUM 139 mEq/L (136-147)
[2017-01-09 13:27] LABS: GLUCOSE 92 mg/dL (70-99)
[2017-01-09 13:28] LABS: ANION GAP 6 MEQ/L (2-14)
[2017-01-09 13:29] LABS: TOTAL BILIRUBIN 0.4 mg/dL (0.0-1.0)
[2017-01-09 13:30] LABS: ALKALINE PHOSPHATASE 42 IU/L (3-129); GFR ESTIMATE (CALCULATED) > 59 mL/min/
[2017-01-09 13:31] LABS: BACTERIA 2+ /HPF; EPITHELIAL CELLS RARE /HPF; HYALINE CASTS 0-5 /LPF; MUCUS 2+ /LPF; RED BLOOD CELLS 0-5 /HPF (0-5); UCUL ADDED? YES; UNCLASSIFIED CRYSTALS 1+ /HPF; WHITE BLOOD CELLS 0-5 /HPF (0-5)
[2017-01-09 13:32] LABS: UREA NITROGEN (BUN) 18 mg/dL (9-23)
[2017-01-09 13:39] LABS: QUANTITATIVE HCG < 4.0 MIU/ML
[2017-01-09] MEDS ORDERED: PRILOSEC20 MG PO (18:20)
[2017-01-09 18:33] VITALS: BP 101/76
== END 2017-01-09 18:42 | disposition home or self-care (01) ==
LOC: EME 12:39
DX: R10.11 Right upper quadrant pain (principal); R10.13 Epigastric pain; K21.9 Gastro-esophageal reflux disease without esophagitis; F32.9 Major depressive disorder, single episode, unspecified; F41.9 Anxiety disorder, unspecified; F60.3 Borderline personality disorder; F43.10 Post-traumatic stress disorder, unspecified; D64.9 Anemia, unspecified; F17.200 Nicotine dependence, unspecified, uncomplicated; Z86.711 Personal history of pulmonary embolism; Z90.710 Acquired absence of both cervix and uterus; Z90.49 Acquired absence of other specified parts of digestive tract; Z88.5 Allergy status to narcotic agent; Z88.8 Allergy status to other drugs, medicaments and biological substances
CPT/HCPCS: 76705; 80053; 81003; 84702; 85027; 87086; 99281; 99283

== ENCOUNTER 2017-01-25 20:28 | Emergency (ER) | payer OTHER ==
[~2017-01-25] VITALS: Ht 180.3 cm; Wt 171.2 kg
[2017-01-25 20:45] LABS: HEMATOCRIT 43.6 % (36.0-46.0); MCH 30.5 PG (29.0-34.0); MCHC 33.5 G/DL (30.0-36.0); MEAN PLAT.VOLUME 9.1 uM^3 (9.5-12.4); PLATELET COUNT 212 K/uL (156-360); RBC DIS.WIDTH-SD 43.3 % (39-53); RED BLOOD COUNT 4.79 M/uL (3.80-5.20)
[2017-01-25 20:51] LABS: CHLORIDE 114 mEq/L (99-109); POTASSIUM 3.6 mEq/L (3.7-5.4); SODIUM 142 mEq/L (136-147)
[2017-01-25 20:53] LABS: GLUCOSE 104 mg/dL (70-99)
[2017-01-25 20:54] LABS: ANION GAP 8 MEQ/L (2-14)
[2017-01-25 20:55] LABS: TOTAL BILIRUBIN 0.3 mg/dL (0.0-1.0)
[2017-01-25 20:56] LABS: ALKALINE PHOSPHATASE 46 IU/L (3-129)
[2017-01-25 20:57] LABS: GFR ESTIMATE (CALCULATED) > 59 mL/min/
[2017-01-25 20:58] LABS: UREA NITROGEN (BUN) 20 mg/dL (9-23)
[2017-01-25 21:00] LABS: LIPASE 34 U/L (1.0-51.0)
[2017-01-25 21:38] LABS: ADD MIUA? YES; BILIRUBIN NEGATIVE; BLOOD NEGATIVE; COLOR AMBER ((YELLOW)); GLUCOSE (STRIP) NEGATIVE; KETONES NEGATIVE; LEUKOCYTES NEGATIVE; NITRITE NEGATIVE; PROTEIN (STRIP) 30
[2017-01-25] MEDS ORDERED: PROMETHAZINE HC25 M1 PO (22:22)
[2017-01-25] MEDS ORDERED: DILAUDID2 MG PO (22:22)
[2017-01-25 22:38] VITALS: BP 125/95
[2017-01-25 22:53] LABS: BACTERIA RARE /HPF; EPITHELIAL CELLS 1+ /HPF; MUCUS 1+ /LPF; UCUL ADDED? NO; WHITE BLOOD CELLS 0-5 /HPF (0-5)
== END 2017-01-25 22:45 | disposition home or self-care (01) ==
LOC: EME 20:28
DX: N80.9 Endometriosis, unspecified (principal); R10.10 Upper abdominal pain, unspecified; K21.9 Gastro-esophageal reflux disease without esophagitis; F60.3 Borderline personality disorder; F43.10 Post-traumatic stress disorder, unspecified; F10.10 Alcohol abuse, uncomplicated; F32.9 Major depressive disorder, single episode, unspecified; Z86.711 Personal history of pulmonary embolism; Z88.8 Allergy status to other drugs, medicaments and biological substances; Z88.5 Allergy status to narcotic agent; F17.200 Nicotine dependence, unspecified, uncomplicated; Z86.718 Personal history of other venous thrombosis and embolism
CPT/HCPCS: 80053; 81003; 83690; 85027; 99281; 99284; Q0169

== ENCOUNTER 2017-01-25 23:10 | Emergency (ER) | payer OTHER ==
[~2017-01-25] VITALS: Ht 180.3 cm; Wt 172.0 kg
[2017-01-26 02:22] VITALS: BP 132/87
== END 2017-01-26 02:25 | disposition home or self-care (01) ==
LOC: EME 23:10
DX: G89.29 Other chronic pain (principal); R10.10 Upper abdominal pain, unspecified; R11.0 Nausea; Z90.710 Acquired absence of both cervix and uterus; Z86.711 Personal history of pulmonary embolism; Z86.718 Personal history of other venous thrombosis and embolism; Z79.01 Long term (current) use of anticoagulants; Z88.5 Allergy status to narcotic agent; F17.200 Nicotine dependence, unspecified, uncomplicated
CPT/HCPCS: 83735; 99281; 99284; J2270; J2765; J3010

== ENCOUNTER 2017-02-12 18:52 | Emergency (ER) | payer OTHER ==
[~2017-02-12] VITALS: Ht 180.3 cm; Wt 172.9 kg
[2017-02-12 19:42] LABS: APPEARANCE SL.HAZY ((CLEAR)); BILIRUBIN NEGATIVE; BLOOD NEGATIVE; COLOR YELLOW ((YELLOW)); GLUCOSE (STRIP) NEGATIVE; KETONES NEGATIVE; LEUKOCYTES NEGATIVE; NITRITE NEGATIVE; PROTEIN (STRIP) 30; SPECIFIC GRAVITY 1.025 (1.000-1.030)
[2017-02-12 19:50] LABS: BACTERIA RARE /HPF; EPITHELIAL CELLS RARE /HPF; MUCUS 1+ /LPF; RED BLOOD CELLS 0-5 /HPF (0-5); UCUL ADDED? NO; WHITE BLOOD CELLS 0-5 /HPF (0-5)
[2017-02-12 20:32] LABS: HEMATOCRIT 43.4 % (36.0-46.0); HEMOGLOBIN 14.5 G/DL (11.9-15.5); MCH 30.1 PG (29.0-34.0); MCHC 33.4 G/DL (30.0-36.0); MCV 90.2 FL (83-99); PLATELET COUNT 187 K/uL (156-360); RBC DIS.WIDTH-CV 12.1 % (11.8-14.6); RED BLOOD COUNT 4.81 M/uL (3.80-5.20); WHITE BLOOD COUNT 5.4 K/uL (4.1-10.2)
[2017-02-12 20:44] LABS: ALBUMIN 3.9 g/dL (3.2-4.8); CHLORIDE 112 mEq/L (99-109); POTASSIUM 4.1 mEq/L (3.7-5.4); SODIUM 138 mEq/L (136-147)
[2017-02-12 20:46] LABS: GLUCOSE 90 mg/dL (70-99)
[2017-02-12 20:47] LABS: TOTAL PROTEIN 6.6 g/dL (6.4-8.3)
[2017-02-12 20:48] LABS: TOTAL BILIRUBIN 0.5 mg/dL (0.0-1.0)
[2017-02-12 20:50] LABS: ALKALINE PHOSPHATASE 47 IU/L (3-129); CREATININE 1.1 mg/dL (0.6-1.3); GFR ESTIMATE (CALCULATED) > 59 mL/min/
[2017-02-12 20:51] LABS: UREA NITROGEN (BUN) 14 mg/dL (9-23)
[2017-02-12 20:53] LABS: ALT (GPT) 43 IU/L (3-49)
[2017-02-12 21:03] LABS: QUANTITATIVE HCG < 4.0 MIU/ML
[2017-02-12 21:15] LABS: AST (GOT) 25 IU/L (2-34)
[2017-02-12 22:21] LABS: LIPASE 47 U/L (1.0-51.0)
[2017-02-13] MEDS ORDERED: VISTARIL50 MG PO (00:27)
[2017-02-13 01:20] VITALS: BP 127/60
[2017-02-14] MEDS ORDERED: ZOFRAN4 MG PO (21:31)
[2017-02-14] MEDS ORDERED: PERCOCET 5/31 TABLET PO (21:31)
== END 2017-02-13 01:23 | disposition home or self-care (01) ==
LOC: EME 18:52
DX: G47.00 Insomnia, unspecified (principal); E86.0 Dehydration; R10.10 Upper abdominal pain, unspecified; R11.0 Nausea; K21.9 Gastro-esophageal reflux disease without esophagitis; E66.01 Morbid (severe) obesity due to excess calories; Z68.43 Body mass index [BMI] 50.0-59.9, adult; F17.200 Nicotine dependence, unspecified, uncomplicated; F32.9 Major depressive disorder, single episode, unspecified; F43.10 Post-traumatic stress disorder, unspecified; F60.3 Borderline personality disorder; Z86.718 Personal history of other venous thrombosis and embolism; Z88.5 Allergy status to narcotic agent
CPT/HCPCS: 74022; 80053; 81003; 83690; 84702; 85027; 99281; 99285; J3010; Q0177

== ENCOUNTER 2017-02-14 20:16 | Emergency (ER) | payer OTHER ==
[~2017-02-14] VITALS: Ht 180.3 cm; Wt 172.8 kg
[2017-02-14 20:40] LABS: APPEARANCE SL.HAZY ((CLEAR)); BILIRUBIN NEGATIVE; BLOOD NEGATIVE; COLOR YELLOW ((YELLOW)); GLUCOSE (STRIP) NEGATIVE; KETONES 5; LEUKOCYTES NEGATIVE; NITRITE NEGATIVE; PROTEIN (STRIP) 30; SPECIFIC GRAVITY 1.029 (1.000-1.030)
[2017-02-14 20:44] LABS: HEMATOCRIT 42.9 % (36.0-46.0); HEMOGLOBIN 14.3 G/DL (11.9-15.5); MCH 30.2 PG (29.0-34.0); MCHC 33.3 G/DL (30.0-36.0); MCV 90.5 FL (83-99); PLATELET COUNT 200 K/uL (156-360); RBC DIS.WIDTH-SD 39.9 % (39-53); RED BLOOD COUNT 4.74 M/uL (3.80-5.20); WHITE BLOOD COUNT 5.7 K/uL (4.1-10.2)
[2017-02-14 20:45] LABS: BACTERIA RARE /HPF; EPITHELIAL CELLS 1+ /HPF; MUCUS 2+ /LPF; RED BLOOD CELLS 0-5 /HPF (0-5); UCUL ADDED? NO; WHITE BLOOD CELLS 0-5 /HPF (0-5)
[2017-02-14 21:00] LABS: ALBUMIN 4.1 g/dL (3.2-4.8); CHLORIDE 113 mEq/L (99-109); POTASSIUM 4.1 mEq/L (3.7-5.4); SODIUM 138 mEq/L (136-147)
[2017-02-14 21:04] LABS: GLUCOSE 98 mg/dL (70-99); TOTAL BILIRUBIN 0.4 mg/dL (0.0-1.0); TOTAL PROTEIN 6.8 g/dL (6.4-8.3)
[2017-02-14 21:06] LABS: ALKALINE PHOSPHATASE 48 IU/L (3-129); CREATININE 1.3 mg/dL (0.6-1.3); GFR ESTIMATE (CALCULATED) 52 mL/min/
[2017-02-14 21:07] LABS: UREA NITROGEN (BUN) 14 mg/dL (9-23)
[2017-02-14 21:08] LABS: AST (GOT) 25 IU/L (2-34)
[2017-02-14 21:09] LABS: ALT (GPT) 55 IU/L (3-49)
[2017-02-14 21:18] LABS: LIPASE 43 U/L (1.0-51.0)
[2017-02-14 21:19] LABS: QUANTITATIVE HCG < 4.0 MIU/ML
[2017-02-14] MEDS ORDERED: PERCOCET 5/31 TABLET PO (21:31)
[2017-02-14] MEDS ORDERED: ZOFRAN4 MG PO (21:31)
[2017-02-14 22:24] VITALS: BP 132/84
== END 2017-02-14 22:15 | disposition home or self-care (01) ==
LOC: EME 20:16
DX: R10.10 Upper abdominal pain, unspecified (principal); G89.29 Other chronic pain; K21.9 Gastro-esophageal reflux disease without esophagitis; R56.9 Unspecified convulsions; F17.200 Nicotine dependence, unspecified, uncomplicated; F32.9 Major depressive disorder, single episode, unspecified; F43.10 Post-traumatic stress disorder, unspecified; F41.9 Anxiety disorder, unspecified; Z86.718 Personal history of other venous thrombosis and embolism; Z88.5 Allergy status to narcotic agent
CPT/HCPCS: 80053; 81003; 83690; 84702; 85027; 99281; 99283; Q0169

== ENCOUNTER 2017-02-25 14:52 | Emergency (ER) | payer OTHER ==
[~2017-02-25] VITALS: Ht 180.3 cm; Wt 174.5 kg
[2017-02-25 16:09] LABS: HEMATOCRIT 42.6 % (36.0-46.0); HEMOGLOBIN 14.2 G/DL (11.9-15.5); MCH 30.3 PG (29.0-34.0); MCHC 33.3 G/DL (30.0-36.0); PLATELET COUNT 216 K/uL (156-360); RBC DIS.WIDTH-CV 12.3 % (11.8-14.6); RBC DIS.WIDTH-SD 40.7 % (39-53); RED BLOOD COUNT 4.68 M/uL (3.80-5.20)
[2017-02-25 16:24] LABS: APPEARANCE SL.HAZY ((CLEAR)); BILIRUBIN NEGATIVE; BLOOD NEGATIVE; COLOR AMBER ((YELLOW)); GLUCOSE (STRIP) NEGATIVE; KETONES NEGATIVE; LEUKOCYTES NEGATIVE; NITRITE NEGATIVE; PROTEIN (STRIP) 30; SPECIFIC GRAVITY 1.033 (1.000-1.030); UROBILINOGEN 0.2 MG/DL (0.2-1.0)
[2017-02-25 16:37] LABS: BACTERIA RARE /HPF; EPITHELIAL CELLS 1+ /HPF; MUCUS 2+ /LPF; RED BLOOD CELLS 0-5 /HPF (0-5); UCUL ADDED? NO; WHITE BLOOD CELLS 0-5 /HPF (0-5)
[2017-02-25 16:47] LABS: CHLORIDE 112 MEQ/L (99-109); POTASSIUM 4.1 MEQ/L (3.7-5.4); SODIUM 139 MEQ/L (136-147); TOTAL BILIRUBIN 0.3 MG/DL (0.0-1.0)
[2017-02-25 16:53] LABS: ALKALINE PHOSPHATASE 41 IU/L (3-129); ALT (GPT) 48 IU/L (3-49); AST (GOT) 19 IU/L (2-34); GFR ESTIMATE (CALCULATED) > 59 mL/min/; GLUCOSE 88 mg/dL (70-99); TOTAL PROTEIN 6.6 G/DL (6.4-8.3); UREA NITROGEN (BUN) 19 mg/dL (9-23)
[2017-02-25 16:55] LABS: QUANTITATIVE HCG < 4.0 MIU/ML
[2017-02-25 18:34] LABS: C DIFF TOXIN NEGATIVE (NEGATIVE)
[2017-02-25] MEDS ORDERED: COMPAZINE5 MG PO (19:23)
[2017-02-25 19:43] VITALS: BP 140/85
== END 2017-02-25 19:44 | disposition home or self-care (01) ==
LOC: EME 14:52
PROVIDERS: Nurse Practitioner Family
DX: R11.2 Nausea with vomiting, unspecified (principal); R19.7 Diarrhea, unspecified; G43.909 Migraine, unspecified, not intractable, without status migrainosus; K21.9 Gastro-esophageal reflux disease without esophagitis; F32.9 Major depressive disorder, single episode, unspecified; F41.9 Anxiety disorder, unspecified; F17.200 Nicotine dependence, unspecified, uncomplicated; Z86.718 Personal history of other venous thrombosis and embolism; Z86.711 Personal history of pulmonary embolism; Z79.01 Long term (current) use of anticoagulants; Z90.710 Acquired absence of both cervix and uterus; Z88.5 Allergy status to narcotic agent; Z88.8 Allergy status to other drugs, medicaments and biological substances
CPT/HCPCS: 80053; 81003; 84702; 85027; 87493; 87506; 99281; 99284

== ENCOUNTER 2017-02-28 14:38 | Emergency (ER) | payer OTHER ==
[~2017-02-28] VITALS: Ht 180.3 cm; Wt 175.8 kg
[~2017-02-28 14:38] MED LIST changes: +COMPAZINE5 MG PO
[2017-02-28 16:00] LABS: HEMATOCRIT 42.2 % (36.0-46.0); HEMOGLOBIN 14.1 G/DL (11.9-15.5); MCH 30.2 PG (29.0-34.0); MCHC 33.4 G/DL (30.0-36.0); MCV 90.4 FL (83-99); PLATELET COUNT 221 K/uL (156-360); RBC DIS.WIDTH-SD 40.1 % (39-53); RED BLOOD COUNT 4.67 M/uL (3.80-5.20); WHITE BLOOD COUNT 8.9 K/uL (4.1-10.2)
[2017-02-28 16:14] LABS: ALBUMIN 4.2 g/dL (3.2-4.8); CHLORIDE 112 mEq/L (99-109); SODIUM 138 mEq/L (136-147)
[2017-02-28 16:16] LABS: GLUCOSE 82 mg/dL (70-99); TOTAL PROTEIN 6.8 g/dL (6.4-8.3)
[2017-02-28 16:18] LABS: TOTAL BILIRUBIN 0.3 mg/dL (0.0-1.0)
[2017-02-28 16:20] LABS: ALKALINE PHOSPHATASE 54 IU/L (3-129); CREATININE 0.9 mg/dL (0.6-1.3); GFR ESTIMATE (CALCULATED) > 59 mL/min/
[2017-02-28 16:21] LABS: AST (GOT) 27 IU/L (2-34); UREA NITROGEN (BUN) 12 mg/dL (9-23)
[2017-02-28 16:23] LABS: ALT (GPT) 66 IU/L (3-49)
[2017-02-28 16:29] LABS: QUANTITATIVE HCG < 4.0 MIU/ML
[2017-02-28 16:56] LABS: APPEARANCE CLEAR ((CLEAR)); BILIRUBIN NEGATIVE; BLOOD NEGATIVE; COLOR YELLOW ((YELLOW)); GLUCOSE (STRIP) NEGATIVE; KETONES NEGATIVE; LEUKOCYTES NEGATIVE; NITRITE NEGATIVE; PROTEIN (STRIP) 30; SPECIFIC GRAVITY 1.026 (1.000-1.030); UCUL ADDED? NO; UROBILINOGEN 0.2 MG/DL (0.2-1.0)
[2017-02-28 20:38] VITALS: BP 130/83
== END 2017-02-28 20:39 | disposition home or self-care (01) ==
LOC: EME 14:38
DX: R10.2 Pelvic and perineal pain (principal); G89.29 Other chronic pain; Z87.19 Personal history of other diseases of the digestive system; K21.9 Gastro-esophageal reflux disease without esophagitis; F17.200 Nicotine dependence, unspecified, uncomplicated; Z90.710 Acquired absence of both cervix and uterus; F32.9 Major depressive disorder, single episode, unspecified; R56.9 Unspecified convulsions; F41.9 Anxiety disorder, unspecified; F43.10 Post-traumatic stress disorder, unspecified; Z86.718 Personal history of other venous thrombosis and embolism; Z79.01 Long term (current) use of anticoagulants; Z88.5 Allergy status to narcotic agent
CPT/HCPCS: 74176; 80053; 81003; 84702; 85027

== ENCOUNTER 2017-03-05 16:03 | Emergency (ER) | payer OTHER ==
[~2017-03-05] VITALS: Ht 181.6 cm; Wt 176.0 kg
[2017-03-05 16:06] VITALS: BP 134/85
[2017-03-05] MEDS ORDERED: FLEXERIL10 MG PO (18:06)
== END 2017-03-05 18:38 | disposition home or self-care (01) ==
LOC: EME 16:03
DX: M25.551 Pain in right hip (principal); M54.31 Sciatica, right side; E66.01 Morbid (severe) obesity due to excess calories; E78.5 Hyperlipidemia, unspecified; J45.909 Unspecified asthma, uncomplicated; K21.9 Gastro-esophageal reflux disease without esophagitis; F41.9 Anxiety disorder, unspecified; F17.200 Nicotine dependence, unspecified, uncomplicated; Z88.5 Allergy status to narcotic agent; Z88.8 Allergy status to other drugs, medicaments and biological substances
CPT/HCPCS: 73502; 99281; 99284

== ENCOUNTER 2017-03-06 20:14 | Emergency (ER) | payer OTHER ==
[~2017-03-06] VITALS: Ht 180.3 cm; Wt 175.8 kg
[2017-03-06 20:57] LABS: APPEARANCE SL.HAZY ((CLEAR)); BILIRUBIN NEGATIVE; BLOOD NEGATIVE; COLOR YELLOW ((YELLOW)); GLUCOSE (STRIP) NEGATIVE; KETONES 5; LEUKOCYTES NEGATIVE; NITRITE NEGATIVE; PROTEIN (STRIP) NEGATIVE; UROBILINOGEN 0.2 MG/DL (0.2-1.0)
[2017-03-06 21:02] LABS: BACTERIA RARE /HPF; EPITHELIAL CELLS RARE /HPF; MUCUS TRACE /LPF; RED BLOOD CELLS 0-5 /HPF (0-5); UCUL ADDED? NO; WHITE BLOOD CELLS 0-5 /HPF (0-5)
[2017-03-06 21:03] LABS: HEMATOCRIT 43.8 % (36.0-46.0); HEMOGLOBIN 14.6 G/DL (11.9-15.5); MCH 30.1 PG (29.0-34.0); MCHC 33.3 G/DL (30.0-36.0); MCV 90.3 FL (83-99); PLATELET COUNT 211 K/uL (156-360); RBC DIS.WIDTH-CV 12.3 % (11.8-14.6); RBC DIS.WIDTH-SD 40.9 % (39-53); RED BLOOD COUNT 4.85 M/uL (3.80-5.20); WHITE BLOOD COUNT 6.9 K/uL (4.1-10.2)
[2017-03-06 21:18] LABS: ALBUMIN 4.1 g/dL (3.2-4.8)
[2017-03-06 21:19] LABS: CHLORIDE 114 mEq/L (99-109); SODIUM 140 mEq/L (136-147)
[2017-03-06 21:21] LABS: GLUCOSE 84 mg/dL (70-99); TOTAL PROTEIN 6.7 g/dL (6.4-8.3)
[2017-03-06 21:24] LABS: ALKALINE PHOSPHATASE 47 IU/L (3-129)
[2017-03-06 21:25] LABS: CREATININE 0.9 mg/dL (0.6-1.3); GFR ESTIMATE (CALCULATED) > 59 mL/min/; TOTAL BILIRUBIN 0.4 mg/dL (0.0-1.0)
[2017-03-06 21:26] LABS: AST (GOT) 18 IU/L (2-34); UREA NITROGEN (BUN) 16 mg/dL (9-23)
[2017-03-06 21:27] LABS: ALT (GPT) 36 IU/L (3-49)
[2017-03-06 21:34] LABS: QUANTITATIVE HCG < 4.0 MIU/ML
[2017-03-07 00:59] VITALS: BP 121/59
== END 2017-03-07 01:00 | disposition home or self-care (01) ==
LOC: EME 20:14
DX: K59.00 Constipation, unspecified (principal); G89.29 Other chronic pain; K21.9 Gastro-esophageal reflux disease without esophagitis; G43.909 Migraine, unspecified, not intractable, without status migrainosus; F32.9 Major depressive disorder, single episode, unspecified; F41.9 Anxiety disorder, unspecified; Z90.710 Acquired absence of both cervix and uterus; Z86.718 Personal history of other venous thrombosis and embolism; Z86.711 Personal history of pulmonary embolism; F17.200 Nicotine dependence, unspecified, uncomplicated; Z88.5 Allergy status to narcotic agent; Z88.8 Allergy status to other drugs, medicaments and biological substances
CPT/HCPCS: 76856; 80053; 81003; 84702; 85027; 99281; 99283

== ENCOUNTER 2017-03-09 05:00 | Emergency (ER) | payer OTHER ==
[~2017-03-09] VITALS: Ht 180.3 cm; Wt 175.4 kg
[2017-03-09] MEDS ORDERED: NYSTOP60 GM TP (06:07)
[2017-03-09] MEDS ORDERED: ATARAX,VISTARIL25 MG PO (06:07)
[2017-03-09 06:46] VITALS: BP 123/86
== END 2017-03-09 06:47 | disposition home or self-care (01) ==
LOC: EME 05:00
DX: F41.1 Generalized anxiety disorder (principal); B37.2 Candidiasis of skin and nail; F33.2 Major depressive disorder, recurrent severe without psychotic features; F60.3 Borderline personality disorder; F43.10 Post-traumatic stress disorder, unspecified; K21.9 Gastro-esophageal reflux disease without esophagitis; G43.909 Migraine, unspecified, not intractable, without status migrainosus; F17.200 Nicotine dependence, unspecified, uncomplicated; Z86.718 Personal history of other venous thrombosis and embolism; Z86.711 Personal history of pulmonary embolism; Z88.5 Allergy status to narcotic agent; Z88.8 Allergy status to other drugs, medicaments and biological substances
CPT/HCPCS: 81003; 81025; 90839; 99281; 99284; Q0177

== ENCOUNTER 2017-03-22 05:06 | Emergency (ER) | payer OTHER ==
[~2017-03-22] VITALS: Ht 182.9 cm; Wt 178.3 kg
[~2017-03-22 05:06] MED LIST changes: +NYSTOP60 GM TP
[2017-03-22 07:07] VITALS: BP 117/80
== END 2017-03-22 07:09 | disposition home or self-care (01) ==
LOC: EME 05:06
DX: L03.311 Cellulitis of abdominal wall (principal); K21.9 Gastro-esophageal reflux disease without esophagitis; Z86.718 Personal history of other venous thrombosis and embolism; F17.200 Nicotine dependence, unspecified, uncomplicated; F43.10 Post-traumatic stress disorder, unspecified; F32.9 Major depressive disorder, single episode, unspecified; F60.3 Borderline personality disorder; Z88.5 Allergy status to narcotic agent
CPT/HCPCS: 99281; 99284

== ENCOUNTER 2017-03-25 18:45 | Emergency (ER) | payer OTHER ==
[~2017-03-25] VITALS: Ht 182.9 cm; Wt 178.9 kg
[2017-03-25 22:34] VITALS: BP 138/96
== END 2017-03-25 22:35 | disposition home or self-care (01) ==
LOC: EME 18:45
PROC: 06BY0ZC Excision of Hemorrhoidal Plexus, Open Approach (ICD-10-PCS; principal; 2017-03-25)
DX: K64.5 Perianal venous thrombosis (principal); F42.9 Obsessive-compulsive disorder, unspecified; F41.9 Anxiety disorder, unspecified; F32.9 Major depressive disorder, single episode, unspecified; M79.7 Fibromyalgia; Z88.5 Allergy status to narcotic agent; Z88.8 Allergy status to other drugs, medicaments and biological substances; F17.200 Nicotine dependence, unspecified, uncomplicated
CPT/HCPCS: 99281; 99284; J2250

== ENCOUNTER 2017-03-30 13:33 | Emergency (ER) | payer OTHER ==
[~2017-03-30] VITALS: Ht 182.9 cm; Wt 174.3 kg
[2017-03-30 15:49] LABS: BASOPHIL (%) 0.2 % (0-1); EOSINOPHIL (%) 0.6 % (0-5); HEMATOCRIT 44.2 % (36.0-46.0); HEMOGLOBIN 14.4 G/DL (11.9-15.5); IMMATURE GRANULOCYTE (%) 0.4 % (0.0-0.7); LYMPHOCYTE (%) 27.8 % (15-42); LYMPHOCYTE COUNT 1.5 K/uL (1.0-2.8); MCH 29.6 PG (29.0-34.0); MCHC 32.6 G/DL (30.0-36.0); MCV 90.8 FL (83-99); MONOCYTE (%) 5.5 % (3-12); MONOCYTE COUNT 0.3 K/uL (0-0.8); NEUTROPHIL (%) 65.5 % (45-76); NEUTROPHIL COUNT 3.6 K/uL (1.8-6.4); PLATELET COUNT 213 K/uL (156-360); RBC DIS.WIDTH-CV 12.5 % (11.8-14.6); RBC DIS.WIDTH-SD 41.5 % (39-53); RED BLOOD COUNT 4.87 M/uL (3.80-5.20); WHITE BLOOD COUNT 5.4 K/uL (4.1-10.2)
[2017-03-30 16:21] LABS: ALBUMIN 3.9 G/DL (3.2-4.8); ALKALINE PHOSPHATASE 41 IU/L (3-129); ALT (GPT) 26 IU/L (3-49); AST (GOT) 18 IU/L (2-34); CHLORIDE 115 MEQ/L (99-109); CREATININE 1.2 MG/DL (0.6-1.3); GFR ESTIMATE (CALCULATED) 57 mL/min/; GLUCOSE 96 mg/dL (70-99); LIPASE 27 U/L (1.0-51.0); SODIUM 139 MEQ/L (136-147); TOTAL BILIRUBIN 0.3 MG/DL (0.0-1.0); TOTAL PROTEIN 6.7 G/DL (6.4-8.3); UREA NITROGEN (BUN) 11 mg/dL (9-23)
[2017-03-30 16:24] LABS: QUANTITATIVE HCG < 4.0 MIU/ML
[2017-03-30 16:56] LABS: APPEARANCE TURBID ((CLEAR)); BILIRUBIN NEGATIVE; BLOOD NEGATIVE; COLOR AMBER ((YELLOW)); GLUCOSE (STRIP) NEGATIVE; KETONES NEGATIVE; LEUKOCYTES NEGATIVE; NITRITE NEGATIVE; PROTEIN (STRIP) 30
[2017-03-30 17:17] LABS: BACTERIA RARE /HPF; EPITHELIAL CELLS RARE /HPF; MUCUS RARE /LPF; RED BLOOD CELLS RARE /HPF (0-5); UCUL ADDED? NO; WHITE BLOOD CELLS RARE /HPF (0-5)
[2017-03-30 17:18] LABS: CALCIUM OXALATE CRYSTALS 3+ /HPF
[2017-03-30] MEDS ORDERED: MEDROL DOSEPAK4 MG PO (17:35)
[2017-03-30] MEDS ORDERED: PREDNISONE20 MG PO (17:42)
[2017-03-30 17:55] VITALS: BP 114/79
== END 2017-03-30 18:05 | disposition home or self-care (01) ==
LOC: EME 13:33
PROVIDERS: Emergency Medicine
DX: M70.72 Other bursitis of hip, left hip (principal); M25.551 Pain in right hip; R10.9 Unspecified abdominal pain; G89.29 Other chronic pain; K21.9 Gastro-esophageal reflux disease without esophagitis; F32.9 Major depressive disorder, single episode, unspecified; G43.909 Migraine, unspecified, not intractable, without status migrainosus; R56.9 Unspecified convulsions; F41.9 Anxiety disorder, unspecified; F17.200 Nicotine dependence, unspecified, uncomplicated; Z86.711 Personal history of pulmonary embolism; Z86.718 Personal history of other venous thrombosis and embolism; Z88.5 Allergy status to narcotic agent; Z88.8 Allergy status to other drugs, medicaments and biological substances
CPT/HCPCS: 73521; 80053; 81003; 83690; 84702; 85025; 99281; 99284

== ENCOUNTER 2017-04-09 22:22 | Emergency (ER) | payer OTHER ==
[~2017-04-09] VITALS: Ht 182.9 cm; Wt 175.9 kg
[2017-04-09 22:25] VITALS: BP 148/98
[2017-04-11] MEDS ORDERED: LMX 430 GM TP (13:44)
== END 2017-04-10 00:09 | disposition home or self-care (01) ==
LOC: EME 22:22
DX: L60.0 Ingrowing nail (principal); F17.200 Nicotine dependence, unspecified, uncomplicated; Z88.5 Allergy status to narcotic agent; Z88.6 Allergy status to analgesic agent; Z88.8 Allergy status to other drugs, medicaments and biological substances
CPT/HCPCS: 99281; 99283

== ENCOUNTER 2017-04-11 13:13 | Emergency (ER) | payer OTHER ==
[~2017-04-11] VITALS: Ht 182.9 cm; Wt 177.4 kg
[2017-04-11] MEDS ORDERED: LMX 430 GM TP (13:44)
[2017-04-11 13:57] VITALS: BP 122/95
== END 2017-04-11 13:59 | disposition home or self-care (01) ==
LOC: EME 13:13
DX: K64.4 Residual hemorrhoidal skin tags (principal); K21.9 Gastro-esophageal reflux disease without esophagitis; G43.909 Migraine, unspecified, not intractable, without status migrainosus; F32.9 Major depressive disorder, single episode, unspecified; F41.9 Anxiety disorder, unspecified; F17.200 Nicotine dependence, unspecified, uncomplicated; Z90.710 Acquired absence of both cervix and uterus; Z86.711 Personal history of pulmonary embolism; Z86.718 Personal history of other venous thrombosis and embolism; Z79.01 Long term (current) use of anticoagulants; Z88.5 Allergy status to narcotic agent; Z88.8 Allergy status to other drugs, medicaments and biological substances
CPT/HCPCS: 99281; 99283

== ENCOUNTER 2017-04-25 17:38 | Emergency (ER) | payer OTHER ==
[~2017-04-25] VITALS: Ht 182.9 cm; Wt 175.6 kg
[~2017-04-25 17:38] MED LIST changes: +LMX 430 GM TP
[2017-04-25 17:41] VITALS: BP 143/86
[2017-04-25] MEDS ORDERED: MOBIC7.5 MG PO (19:15)
[2017-04-25] MEDS ORDERED: HYCODAN SYRUP480 ML PO (19:17)
== END 2017-04-25 19:48 | disposition home or self-care (01) ==
LOC: EME 17:38
DX: R07.81 Pleurodynia (principal); G47.419 Narcolepsy without cataplexy; F60.3 Borderline personality disorder; F43.10 Post-traumatic stress disorder, unspecified; F32.9 Major depressive disorder, single episode, unspecified; Z88.5 Allergy status to narcotic agent; Z88.8 Allergy status to other drugs, medicaments and biological substances; F17.200 Nicotine dependence, unspecified, uncomplicated
CPT/HCPCS: 71046; 93005; 99281; 99284

== ENCOUNTER 2017-05-03 18:46 | Observation (INO) | payer OTHER ==
[~2017-05-03] VITALS: Ht 181.6 cm; Wt 180.5 kg
[~2017-05-03 18:46] MED LIST changes: +HYCODAN SYRUP480 ML PO
[2017-05-03 19:19] LABS: HEMATOCRIT 44.7 % (36.0-46.0); HEMOGLOBIN 14.8 G/DL (11.9-15.5); MCH 29.5 PG (29.0-34.0); MCHC 33.1 G/DL (30.0-36.0); MCV 89.2 FL (83-99); PLATELET COUNT 228 K/uL (156-360); RBC DIS.WIDTH-CV 13.2 % (11.8-14.6); RBC DIS.WIDTH-SD 43.1 % (39-53); RED BLOOD COUNT 5.01 M/uL (3.80-5.20); WHITE BLOOD COUNT 5.4 K/uL (4.1-10.2)
[2017-05-03 19:31] LABS: APPEARANCE SL.HAZY ((CLEAR)); BILIRUBIN NEGATIVE; BLOOD NEGATIVE; COLOR AMBER ((YELLOW)); GLUCOSE (STRIP) NEGATIVE; KETONES 5; LEUKOCYTES NEGATIVE; NITRITE NEGATIVE; PROTEIN (STRIP) 30; SPECIFIC GRAVITY 1.032 (1.000-1.030); UROBILINOGEN 0.2 MG/DL (0.2-1.0)
[2017-05-03 19:32] LABS: ALBUMIN 4.1 g/dL (3.2-4.8)
[2017-05-03 19:33] LABS: CHLORIDE 113 mEq/L (99-109); POTASSIUM 4.4 mEq/L (3.7-5.4); SODIUM 139 mEq/L (136-147)
[2017-05-03 19:35] LABS: GLUCOSE 84 mg/dL (70-99); TOTAL PROTEIN 7.2 g/dL (6.4-8.3)
[2017-05-03 19:37] LABS: TOTAL BILIRUBIN 0.4 mg/dL (0.0-1.0)
[2017-05-03 19:38] LABS: ALKALINE PHOSPHATASE 56 IU/L (3-129)
[2017-05-03 19:39] LABS: GFR ESTIMATE (CALCULATED) > 59 mL/min/
[2017-05-03 19:40] LABS: AST (GOT) 52 IU/L (2-34); UREA NITROGEN (BUN) 14 mg/dL (9-23)
[2017-05-03 19:41] LABS: ALT (GPT) 75 IU/L (3-49)
[2017-05-03 19:44] LABS: BACTERIA NONE SEEN /HPF; EPITHELIAL CELLS RARE /HPF; MUCUS 2+ /LPF; RED BLOOD CELLS 0-5 /HPF (0-5); UCUL ADDED? NO; WHITE BLOOD CELLS 0-5 /HPF (0-5)
[2017-05-03 19:51] LABS: QUANTITATIVE HCG < 4.0 MIU/ML
[2017-05-04 01:42] LABS: LIPASE 31 U/L (1.0-51.0)
[2017-05-04] MEDS ORDERED: OXYCODONE HCL20 M1 PO (01:42)
[2017-05-04] MEDS ORDERED: TOPIRAMATE200 MG PO (01:43)
[2017-05-04] MEDS ORDERED: FLUOXETINE HCL40 MG PO (01:45)
[2017-05-04] MEDS ORDERED: ARIPIPRAZOLE2 MG PO (01:46)
[2017-05-04] MEDS ORDERED: CLONIDINE HCL0.2 MG PO (01:48)
[2017-05-04] MEDS ORDERED: HYOSCYAMINE0.375 MG PO (01:49)
[2017-05-04] MEDS ORDERED: ONDANSETRON ODT8 MG PO (01:51)
[2017-05-04] MEDS ORDERED: LUVOX50 MG PO (01:52)
[2017-05-04] MEDS ORDERED: OMEPRAZOLE40 M1 PO (02:09)
[2017-05-04] MEDS ORDERED: PROVIGIL200 MG PO (02:11)
[2017-05-04] MEDS ORDERED: NORETHINDRONE AC5 MG PO (02:12)
[2017-05-04] MEDS ORDERED: XYREM500 MG/1 M PO (02:15)
[2017-05-04] MEDS ORDERED: ALEVE220 M2 PO (02:17)
[2017-05-04] MEDS ORDERED: TYLENOL EXTRA500 MG PO (02:17)
[2017-05-04] MEDS ORDERED: MAGNESIUM OXID500 MG PO (02:19)
[2017-05-04] MEDS ORDERED: COMPOUND CREAM TP (02:22)
[2017-05-04 03:31] VITALS: BP 120/70
[2017-05-04 05:58] LABS: BASOPHIL (%) 0.2 % (0-1); EOSINOPHIL (%) 1.1 % (0-5); EOSINOPHIL COUNT 0.1 K/uL (0-0.3); HEMATOCRIT 38.8 % (36.0-46.0); IMMATURE GRANULOCYTE (%) 0.4 % (0.0-0.7); MCH 29.9 PG (29.0-34.0); MCHC 32.5 G/DL (30.0-36.0); MCV 91.9 FL (83-99); MONOCYTE (%) 7.4 % (3-12); MONOCYTE COUNT 0.4 K/uL (0-0.8); NEUTROPHIL (%) 48.9 % (45-76); NEUTROPHIL COUNT 2.3 K/uL (1.8-6.4); PLATELET COUNT 191 K/uL (156-360); RBC DIS.WIDTH-CV 13.4 % (11.8-14.6); RED BLOOD COUNT 4.22 M/uL (3.80-5.20); WHITE BLOOD COUNT 4.7 K/uL (4.1-10.2)
[2017-05-04 05:59] LABS: HEMOGLOBIN 12.6 G/DL (11.9-15.5)
[2017-05-04 06:01] LABS: ALBUMIN 3.4 G/DL (3.2-4.8); ALKALINE PHOSPHATASE 40 IU/L (3-129); ALT (GPT) 50 IU/L (3-49); AST (GOT) 25 IU/L (2-34); CHLORIDE 114 MEQ/L (99-109); GFR ESTIMATE (CALCULATED) > 59 mL/min/; GLUCOSE 79 mg/dL (70-99); LIPASE 38 U/L (1.0-51.0); POTASSIUM 4.2 MEQ/L (3.7-5.4); SODIUM 140 MEQ/L (136-147); TOTAL BILIRUBIN 0.3 MG/DL (0.0-1.0); TOTAL PROTEIN 5.1 G/DL (6.4-8.3); UREA NITROGEN (BUN) 12 mg/dL (9-23)
[2017-05-04 08:37] VITALS: BP 123/67
[2017-05-04 11:44] VITALS: BP 117/67
[2017-05-04 16:08] VITALS: BP 137/74
== END 2017-05-04 19:36 | disposition home or self-care (01) ==
LOC: EME 18:46 → RME 18:46 → EDOF 05-04 01:10 → ENRESERV 05-04 01:11 → 5WEST 05-04 03:03
PROVIDERS: Physician Assistant
DX: K56.7 Ileus, unspecified (principal); G43.909 Migraine, unspecified, not intractable, without status migrainosus; K82.8 Other specified diseases of gallbladder; K86.2 Cyst of pancreas; R74.0 Nonspecific elevation of levels of transaminase and lactic acid dehydrogenase [LDH]; F41.9 Anxiety disorder, unspecified; F32.9 Major depressive disorder, single episode, unspecified; G47.411 Narcolepsy with cataplexy; F60.3 Borderline personality disorder; K21.9 Gastro-esophageal reflux disease without esophagitis; F43.10 Post-traumatic stress disorder, unspecified; G89.29 Other chronic pain; F17.200 Nicotine dependence, unspecified, uncomplicated; E66.9 Obesity, unspecified; Z68.43 Body mass index [BMI] 50.0-59.9, adult
CPT/HCPCS: 74022; 74177; 80053; 81003; 83690; 84702; 85025; 85027; 99281; 99285; G0378; J0780; J1650; J2270; J2550; J7030; J7040

== ENCOUNTER 2017-05-09 00:35 | Emergency (ER) | payer OTHER ==
[~2017-05-09] VITALS: Ht 180.3 cm; Wt 176.1 kg
[~2017-05-09 00:35] MED LIST changes: +ALEVE220 M2 PO; +ARIPIPRAZOLE2 MG PO; +CLONIDINE HCL0.2 MG PO; +COMPOUND CREAM TP; +FLUOXETINE HCL40 MG PO; +HYOSCYAMINE0.375 MG PO; +LUVOX50 MG PO; +MAGNESIUM OXID500 MG PO; +ONDANSETRON ODT8 MG PO; +OXYCODONE HCL20 M1 PO; +PROVIGIL200 MG PO; +TOPIRAMATE200 MG PO; +TYLENOL EXTRA500 MG PO; +XYREM500 MG/1 M PO
[2017-05-09 02:01] LABS: HEMOGLOBIN 13.4 G/DL (11.9-15.5); MCH 30.1 PG (29.0-34.0); MCHC 33.5 G/DL (30.0-36.0); MCV 89.9 FL (83-99); PLATELET COUNT 173 K/uL (156-360); RBC DIS.WIDTH-CV 13.1 % (11.8-14.6); RBC DIS.WIDTH-SD 43.1 % (39-53); RED BLOOD COUNT 4.45 M/uL (3.80-5.20)
[2017-05-09 02:12] LABS: ALBUMIN 3.6 g/dL (3.2-4.8); CHLORIDE 115 mEq/L (99-109); POTASSIUM 3.6 mEq/L (3.7-5.4); SODIUM 140 mEq/L (136-147)
[2017-05-09 02:14] LABS: GLUCOSE 86 mg/dL (70-99)
[2017-05-09 02:15] LABS: TOTAL PROTEIN 5.5 g/dL (6.4-8.3)
[2017-05-09 02:18] LABS: ALKALINE PHOSPHATASE 53 IU/L (3-129); CREATININE 0.9 mg/dL (0.6-1.3); GFR ESTIMATE (CALCULATED) > 59 mL/min/; TOTAL BILIRUBIN 0.3 mg/dL (0.0-1.0)
[2017-05-09 02:19] LABS: UREA NITROGEN (BUN) 17 mg/dL (9-23)
[2017-05-09 02:21] LABS: ALT (GPT) 52 IU/L (3-49)
[2017-05-09 02:25] LABS: AST (GOT) 24 IU/L (2-34)
[2017-05-09 02:37] LABS: APPEARANCE TURBID ((CLEAR)); BILIRUBIN NEGATIVE; BLOOD NEGATIVE; COLOR YELLOW ((YELLOW)); GLUCOSE (STRIP) NEGATIVE; KETONES 5; LEUKOCYTES NEGATIVE; NITRITE NEGATIVE; PROTEIN (STRIP) 100; SPECIFIC GRAVITY 1.038 (1.000-1.030)
[2017-05-09 02:53] LABS: AMORPHOUS URATES CRYSTALS 3+; BACTERIA 3+ /HPF; EPITHELIAL CELLS 1+ /HPF; MUCUS RARE /LPF; RED BLOOD CELLS 0-5 /HPF (0-5); UCUL ADDED? YES; WHITE BLOOD CELLS 0-5 /HPF (0-5)
[2017-05-09] MEDS ORDERED: PHENERGAN25 MG PR (03:04)
[2017-05-09 03:42] VITALS: BP 111/84
== END 2017-05-09 03:46 | disposition home or self-care (01) ==
LOC: EME 00:35
PROVIDERS: Emergency Medicine
DX: R11.10 Vomiting, unspecified (principal); R19.7 Diarrhea, unspecified; K21.9 Gastro-esophageal reflux disease without esophagitis; F32.9 Major depressive disorder, single episode, unspecified; F41.9 Anxiety disorder, unspecified; G43.909 Migraine, unspecified, not intractable, without status migrainosus; F17.200 Nicotine dependence, unspecified, uncomplicated; Z86.718 Personal history of other venous thrombosis and embolism; Z86.711 Personal history of pulmonary embolism; Z90.710 Acquired absence of both cervix and uterus; Z88.5 Allergy status to narcotic agent; Z88.8 Allergy status to other drugs, medicaments and biological substances
CPT/HCPCS: 74021; 80053; 81003; 85027; 87086; 87493; 99281; 99284; J1630; J7030

== ENCOUNTER 2017-05-15 23:00 | Emergency (ER) | payer OTHER ==
[~2017-05-15] VITALS: Ht 180.3 cm; Wt 174.3 kg
[~2017-05-15 23:00] MED LIST changes: +PHENERGAN25 MG PR
[2017-05-15 23:49] LABS: HEMATOCRIT 45.5 % (36.0-46.0); HEMOGLOBIN 15.1 G/DL (11.9-15.5); MCH 29.6 PG (29.0-34.0); MCHC 33.2 G/DL (30.0-36.0); MCV 89.2 FL (83-99); RBC DIS.WIDTH-CV 12.8 % (11.8-14.6); RBC DIS.WIDTH-SD 42.3 % (39-53)
[2017-05-15 23:51] LABS: APPEARANCE SL.HAZY ((CLEAR)); BILIRUBIN SMALL; BLOOD NEGATIVE; COLOR AMBER ((YELLOW)); GLUCOSE (STRIP) NEGATIVE; KETONES 5; LEUKOCYTES TRACE; NITRITE NEGATIVE; PROTEIN (STRIP) 30; SPECIFIC GRAVITY 1.038 (1.000-1.030)
[2017-05-15 23:56] LABS: PLATELET COUNT 259 K/uL (156-360)
[2017-05-15 23:58] LABS: ALBUMIN 4.1 g/dL (3.2-4.8); CHLORIDE 116 mEq/L (99-109)
[2017-05-15 23:59] LABS: POTASSIUM 4.1 mEq/L (3.7-5.4); SODIUM 141 mEq/L (136-147)
[2017-05-16 00:01] LABS: GLUCOSE 68 mg/dL (70-99)
[2017-05-16 00:03] LABS: TOTAL BILIRUBIN 0.3 mg/dL (0.0-1.0)
[2017-05-16 00:04] LABS: ALKALINE PHOSPHATASE 60 IU/L (3-129); CREATININE 1.1 mg/dL (0.6-1.3); GFR ESTIMATE (CALCULATED) > 59 mL/min/
[2017-05-16 00:05] LABS: UREA NITROGEN (BUN) 13 mg/dL (9-23)
[2017-05-16 00:06] LABS: AST (GOT) 23 IU/L (2-34)
[2017-05-16 00:07] LABS: ALT (GPT) 51 IU/L (3-49)
[2017-05-16 00:13] LABS: QUANTITATIVE HCG < 4.0 MIU/ML
[2017-05-16 00:15] LABS: TOTAL PROTEIN 6.6 g/dL (6.4-8.3)
[2017-05-16 01:14] LABS: RED BLOOD CELLS 0-5 /HPF (0-5)
[2017-05-16 01:15] LABS: BACTERIA 1+ /HPF; EPITHELIAL CELLS 1+ /HPF; MUCUS 3+ /LPF; UCUL ADDED? NO; URIC ACID CRYSTALS 3+ /HPF; WHITE BLOOD CELLS 0-5 /HPF (0-5)
[2017-05-16 01:23] LABS: TROP-I INTERPRETATION NEGATIVE; TROPONIN-I < 0.01 ng/mL (0.0-0.30)
[2017-05-16 02:59] VITALS: BP 129/77
== END 2017-05-16 02:59 | disposition home or self-care (01) ==
LOC: EME 23:00
PROVIDERS: Emergency Medicine
DX: R10.9 Unspecified abdominal pain (principal); G89.29 Other chronic pain; I49.1 Atrial premature depolarization; K21.9 Gastro-esophageal reflux disease without esophagitis; G47.411 Narcolepsy with cataplexy; F41.9 Anxiety disorder, unspecified; F60.3 Borderline personality disorder; F43.10 Post-traumatic stress disorder, unspecified; F32.9 Major depressive disorder, single episode, unspecified; F17.200 Nicotine dependence, unspecified, uncomplicated; Z79.51 Long term (current) use of inhaled steroids; Z79.891 Long term (current) use of opiate analgesic; Z87.19 Personal history of other diseases of the digestive system; Z86.718 Personal history of other venous thrombosis and embolism; Z86.711 Personal history of pulmonary embolism; Z87.42 Personal history of other diseases of the female genital tract; Z88.5 Allergy status to narcotic agent; Z88.8 Allergy status to other drugs, medicaments and biological substances
CPT/HCPCS: 74021; 74177; 80053; 81003; 84484; 84702; 85027; 93005; 99281; 99285; J7030

== ENCOUNTER 2017-05-17 20:00 | Emergency (ER) | payer OTHER ==
[~2017-05-17] VITALS: Ht 182.9 cm; Wt 175.5 kg
[2017-05-17 21:36] LABS: HEMATOCRIT 43.3 % (36.0-46.0); HEMOGLOBIN 14.4 G/DL (11.9-15.5); MCH 29.8 PG (29.0-34.0); MCHC 33.3 G/DL (30.0-36.0); MCV 89.5 FL (83-99); PLATELET COUNT 243 K/uL (156-360); RBC DIS.WIDTH-CV 12.9 % (11.8-14.6); RBC DIS.WIDTH-SD 42.5 % (39-53); RED BLOOD COUNT 4.84 M/uL (3.80-5.20); WHITE BLOOD COUNT 4.9 K/uL (4.1-10.2)
[2017-05-17 21:51] LABS: CHLORIDE 117 mEq/L (99-109); POTASSIUM 4.2 mEq/L (3.7-5.4); SODIUM 142 mEq/L (136-147)
[2017-05-17 21:53] LABS: GLUCOSE 79 mg/dL (70-99)
[2017-05-17 21:56] LABS: GFR ESTIMATE (CALCULATED) > 59 mL/min/
[2017-05-17 21:57] LABS: UREA NITROGEN (BUN) 13 mg/dL (9-23)
[2017-05-17 21:58] LABS: TROP-I INTERPRETATION NEGATIVE; TROPONIN-I < 0.01 ng/mL (0.0-0.30)
[2017-05-18 02:23] VITALS: BP 122/85
== END 2017-05-18 02:25 | disposition home or self-care (01) ==
LOC: EME 20:00
PROVIDERS: Emergency Medicine
DX: R07.89 Other chest pain (principal); R91.8 Other nonspecific abnormal finding of lung field; G89.29 Other chronic pain; K21.9 Gastro-esophageal reflux disease without esophagitis; G43.909 Migraine, unspecified, not intractable, without status migrainosus; R56.9 Unspecified convulsions; F41.9 Anxiety disorder, unspecified; F32.9 Major depressive disorder, single episode, unspecified; F43.10 Post-traumatic stress disorder, unspecified; G47.411 Narcolepsy with cataplexy; F17.200 Nicotine dependence, unspecified, uncomplicated; Z86.718 Personal history of other venous thrombosis and embolism; Z86.711 Personal history of pulmonary embolism; Z90.710 Acquired absence of both cervix and uterus; Z87.19 Personal history of other diseases of the digestive system; Z88.5 Allergy status to narcotic agent; Z91.018 Allergy to other foods; Z91.02 Food additives allergy status
CPT/HCPCS: 71046; 71275; 80048; 84484; 85027; 85379; 93005; 99281; 99285

== ENCOUNTER 2017-05-21 22:04 | Emergency (ER) | payer OTHER ==
[~2017-05-21] VITALS: Ht 182.9 cm; Wt 175.1 kg
[2017-05-22] MEDS ORDERED: BACTRIM,SEPT1 TABLET PO (00:26)
[2017-05-22 01:40] VITALS: BP 120/80
[2017-05-22] MEDS ORDERED: OXYCODONE HCL20 M1 PO (22:02)
== END 2017-05-22 01:40 | disposition home or self-care (01) ==
LOC: EME 22:04
DX: L03.211 Cellulitis of face (principal); K21.9 Gastro-esophageal reflux disease without esophagitis; F32.9 Major depressive disorder, single episode, unspecified; G43.909 Migraine, unspecified, not intractable, without status migrainosus; F41.9 Anxiety disorder, unspecified; Z86.718 Personal history of other venous thrombosis and embolism; Z86.711 Personal history of pulmonary embolism; Z90.710 Acquired absence of both cervix and uterus; F17.200 Nicotine dependence, unspecified, uncomplicated; Z88.5 Allergy status to narcotic agent; Z88.8 Allergy status to other drugs, medicaments and biological substances
CPT/HCPCS: J2765

== ENCOUNTER 2017-05-22 17:14 | Emergency (ER) | payer OTHER ==
[~2017-05-22] VITALS: Ht 182.9 cm; Wt 175.1 kg
[~2017-05-22 17:14] MED LIST changes: +BACTRIM,SEPT1 TABLET PO
[2017-05-22 18:03] LABS: APPEARANCE SL.HAZY ((CLEAR)); BILIRUBIN NEGATIVE; BLOOD NEGATIVE; COLOR YELLOW ((YELLOW)); GLUCOSE (STRIP) NEGATIVE; KETONES NEGATIVE; LEUKOCYTES NEGATIVE; NITRITE NEGATIVE; PROTEIN (STRIP) NEGATIVE; SPECIFIC GRAVITY 1.015 (1.000-1.030); UROBILINOGEN 0.2 MG/DL (0.2-1.0)
[2017-05-22 18:21] LABS: BACTERIA RARE /HPF; EPITHELIAL CELLS 1+ /HPF; MUCUS TRACE /LPF; RED BLOOD CELLS 0-5 /HPF (0-5); UCUL ADDED? NO; WHITE BLOOD CELLS 0-5 /HPF (0-5)
[2017-05-22 18:36] LABS: HEMATOCRIT 45.1 % (36.0-46.0); HEMOGLOBIN 15.1 G/DL (11.9-15.5); MCH 30.2 PG (29.0-34.0); MCHC 33.5 G/DL (30.0-36.0); MCV 90.2 FL (83-99); NRBC (%) 0.4 /100 WBC (0-0); RBC DIS.WIDTH-CV 13.1 % (11.8-14.6); WHITE BLOOD COUNT 4.6 K/uL (4.1-10.2)
[2017-05-22 18:42] LABS: ALBUMIN 3.8 g/dL (3.2-4.8); CHLORIDE 118 mEq/L (99-109); POTASSIUM 4.3 mEq/L (3.7-5.4); SODIUM 140 mEq/L (136-147)
[2017-05-22 18:44] LABS: GLUCOSE 82 mg/dL (70-99); TOTAL PROTEIN 6.2 g/dL (6.4-8.3)
[2017-05-22 18:46] LABS: TOTAL BILIRUBIN 0.3 mg/dL (0.0-1.0)
[2017-05-22 18:48] LABS: ALKALINE PHOSPHATASE 59 IU/L (3-129); CREATININE 0.9 mg/dL (0.6-1.3); GFR ESTIMATE (CALCULATED) > 59 mL/min/
[2017-05-22 18:49] LABS: UREA NITROGEN (BUN) 12 mg/dL (9-23)
[2017-05-22 18:50] LABS: AST (GOT) 29 IU/L (2-34)
[2017-05-22 18:51] LABS: ALT (GPT) 57 IU/L (3-49); LIPASE 48 U/L (1.0-51.0); TROP-I INTERPRETATION NEGATIVE; TROPONIN-I < 0.01 ng/mL (0.0-0.30)
[2017-05-22 19:02] LABS: QUANTITATIVE HCG < 4.0 MIU/ML
[2017-05-22 19:23] LABS: PLAT.SUFFICIENCY DECREASED
[2017-05-22 19:32] LABS: CARBON DIOXIDE (BICARBONATE) 17.1 MEQ/L (20-31)
[2017-05-22 20:16] LABS: PLATELET COUNT 139 K/uL (156-360)
[2017-05-22 21:34] LABS: CHLORIDE 118 mEq/L (99-109); POTASSIUM 4.1 mEq/L (3.7-5.4); SODIUM 141 mEq/L (136-147)
[2017-05-22 21:36] LABS: GLUCOSE 84 mg/dL (70-99)
[2017-05-22 21:39] LABS: CREATININE 0.8 mg/dL (0.6-1.3); GFR ESTIMATE (CALCULATED) > 59 mL/min/
[2017-05-22 21:40] LABS: UREA NITROGEN (BUN) 12 mg/dL (9-23)
[2017-05-22] MEDS ORDERED: OXYCODONE HCL20 M1 PO (22:02)
[2017-05-22 22:38] VITALS: BP 100/52
== END 2017-05-22 22:59 | disposition home or self-care (01) ==
LOC: EME 17:14
PROVIDERS: Physician Assistant
DX: R11.2 Nausea with vomiting, unspecified (principal); R10.10 Upper abdominal pain, unspecified; R07.89 Other chest pain; G89.29 Other chronic pain; K21.9 Gastro-esophageal reflux disease without esophagitis; G47.411 Narcolepsy with cataplexy; F60.3 Borderline personality disorder; F43.10 Post-traumatic stress disorder, unspecified; F32.9 Major depressive disorder, single episode, unspecified; F10.10 Alcohol abuse, uncomplicated; Z79.891 Long term (current) use of opiate analgesic; F17.200 Nicotine dependence, unspecified, uncomplicated; Z88.5 Allergy status to narcotic agent; Z88.8 Allergy status to other drugs, medicaments and biological substances; Z90.710 Acquired absence of both cervix and uterus; Z86.711 Personal history of pulmonary embolism; Z86.718 Personal history of other venous thrombosis and embolism
CPT/HCPCS: 71046; 80048 91; 80053; 81003; 82803; 83605; 83690; 84484; 84702; 85027; 93005; 99281; 99285; J3010; J7030

== ENCOUNTER 2017-05-31 17:31 | Emergency (ER) | payer OTHER ==
[~2017-05-31] VITALS: Ht 182.9 cm; Wt 175.2 kg
[2017-05-31 20:10] VITALS: BP 126/93
== END 2017-05-31 20:10 | disposition home or self-care (01) ==
LOC: EME 17:31
DX: F13.239 Sedative, hypnotic or anxiolytic dependence with withdrawal, unspecified (principal); J45.909 Unspecified asthma, uncomplicated; K58.9 Irritable bowel syndrome, unspecified; F41.9 Anxiety disorder, unspecified; F32.9 Major depressive disorder, single episode, unspecified; G47.419 Narcolepsy without cataplexy; F17.200 Nicotine dependence, unspecified, uncomplicated; Z90.710 Acquired absence of both cervix and uterus; Z88.5 Allergy status to narcotic agent; Z88.8 Allergy status to other drugs, medicaments and biological substances
CPT/HCPCS: 99281; 99283

== ENCOUNTER 2017-06-08 11:19 | Emergency (ER) | payer OTHER ==
[~2017-06-08] VITALS: Ht 182.9 cm; Wt 176.9 kg
[2017-06-08 11:52] LABS: HEMATOCRIT 42.6 % (36.0-46.0); HEMOGLOBIN 13.9 G/DL (11.9-15.5); MCH 29.5 PG (29.0-34.0); MCHC 32.6 G/DL (30.0-36.0); MCV 90.4 FL (83-99); RBC DIS.WIDTH-CV 13.2 % (11.8-14.6); RBC DIS.WIDTH-SD 44.2 % (39-53); RED BLOOD COUNT 4.71 M/uL (3.80-5.20); WHITE BLOOD COUNT 5.4 K/uL (4.1-10.2)
[2017-06-08 11:55] LABS: PLATELET COUNT 187 K/uL (156-360)
[2017-06-08 12:28] LABS: ALBUMIN 3.8 G/DL (3.2-4.8); ALKALINE PHOSPHATASE 44 IU/L (3-129); ALT (GPT) 53 IU/L (3-49); AST (GOT) 30 IU/L (2-34); CHLORIDE 114 MEQ/L (99-109); GFR ESTIMATE (CALCULATED) > 59 mL/min/; GLUCOSE 90 mg/dL (70-99); LIPASE 30 U/L (1.0-51.0); POTASSIUM 3.7 MEQ/L (3.7-5.4); SODIUM 141 MEQ/L (136-147); TOTAL BILIRUBIN 0.4 MG/DL (0.0-1.0); UREA NITROGEN (BUN) 11 mg/dL (9-23)
[2017-06-08 12:32] LABS: QUANTITATIVE HCG < 4.0 MIU/ML
[2017-06-08 14:17] LABS: APPEARANCE CLEAR ((CLEAR)); BILIRUBIN NEGATIVE; BLOOD NEGATIVE; COLOR AMBER ((YELLOW)); GLUCOSE (STRIP) NEGATIVE; KETONES NEGATIVE; LEUKOCYTES NEGATIVE; NITRITE NEGATIVE; PROTEIN (STRIP) 30; SPECIFIC GRAVITY 1.028 (1.000-1.030); UCUL ADDED? NO
[2017-06-08] MEDS ORDERED: ZOFRAN ODT4 MG PO (16:40)
[2017-06-08] MEDS ORDERED: REGLAN10 MG PO (17:11)
[2017-06-08 17:24] VITALS: BP 141/87
== END 2017-06-08 17:27 | disposition home or self-care (01) ==
LOC: EME 11:19
DX: R10.11 Right upper quadrant pain (principal); R11.0 Nausea; K58.9 Irritable bowel syndrome, unspecified; K21.9 Gastro-esophageal reflux disease without esophagitis; J45.909 Unspecified asthma, uncomplicated; R56.9 Unspecified convulsions; F17.200 Nicotine dependence, unspecified, uncomplicated; Z88.5 Allergy status to narcotic agent; Z88.8 Allergy status to other drugs, medicaments and biological substances
CPT/HCPCS: 76705; 80053; 81003; 83690; 84702; 85027; 99281; 99284

== ENCOUNTER 2017-06-12 14:50 | Emergency (ER) | payer OTHER ==
[~2017-06-12] VITALS: Ht 180.3 cm; Wt 180.1 kg
[~2017-06-12 14:50] MED LIST changes: +REGLAN10 MG PO
[2017-06-12] MEDS ORDERED: GOLYTELY SOLU4000 ML PO (17:36)
[2017-06-12 17:46] VITALS: BP 138/89
== END 2017-06-12 17:53 | disposition home or self-care (01) ==
LOC: RME 14:50 → EME 14:50 → RME 17:53
DX: K59.00 Constipation, unspecified (principal); T40.605A Adverse effect of unspecified narcotics, initial encounter; J45.909 Unspecified asthma, uncomplicated; K21.9 Gastro-esophageal reflux disease without esophagitis; K58.9 Irritable bowel syndrome, unspecified; R56.9 Unspecified convulsions; F17.200 Nicotine dependence, unspecified, uncomplicated; Z88.5 Allergy status to narcotic agent; Z88.8 Allergy status to other drugs, medicaments and biological substances
CPT/HCPCS: 74018; 99281; 99284

== ENCOUNTER 2017-07-07 15:27 | Emergency (ER) | payer OTHER ==
[~2017-07-07] VITALS: Ht 180.3 cm; Wt 175.9 kg
[~2017-07-07 15:27] MED LIST changes: +GOLYTELY SOLU4000 ML PO
[2017-07-07 16:09] LABS: HEMOGLOBIN 14.5 G/DL (11.9-15.5); MCH 29.5 PG (29.0-34.0); MCHC 32.2 G/DL (30.0-36.0); MCV 91.5 FL (83-99); PLATELET COUNT 243 K/uL (156-360); RBC DIS.WIDTH-SD 43.8 % (39-53); RED BLOOD COUNT 4.92 M/uL (3.80-5.20); WHITE BLOOD COUNT 6.7 K/uL (4.1-10.2)
[2017-07-07 16:19] LABS: CHLORIDE 110 mEq/L (99-109); POTASSIUM 4.2 mEq/L (3.7-5.4); SODIUM 137 mEq/L (136-147)
[2017-07-07 16:21] LABS: GLUCOSE 77 mg/dL (70-99)
[2017-07-07 16:24] LABS: CREATININE 1.1 mg/dL (0.6-1.3); GFR ESTIMATE (CALCULATED) > 59 mL/min/
[2017-07-07 16:25] LABS: UREA NITROGEN (BUN) 11 mg/dL (9-23)
[2017-07-07 20:00] VITALS: BP 135/71
== END 2017-07-07 19:30 | disposition home or self-care (01) ==
LOC: EME 15:27
DX: S93.402A Sprain of unspecified ligament of left ankle, initial encounter (principal); R06.00 Dyspnea, unspecified; J30.2 Other seasonal allergic rhinitis; M77.32 Calcaneal spur, left foot; X58.XXXA Exposure to other specified factors, initial encounter; F17.200 Nicotine dependence, unspecified, uncomplicated
CPT/HCPCS: 71046; 73610; 80048; 85027; 93005; 99281; 99284

== ENCOUNTER 2017-07-16 12:16 | Emergency (ER) | payer OTHER ==
[~2017-07-16] VITALS: Ht 180.3 cm; Wt 181.0 kg
[2017-07-16 13:06] LABS: HEMATOCRIT 40.1 % (36.0-46.0); HEMOGLOBIN 13.1 G/DL (11.9-15.5); MCH 29.8 PG (29.0-34.0); MCHC 32.7 G/DL (30.0-36.0); MCV 91.1 FL (83-99); PLATELET COUNT 225 K/uL (156-360); RBC DIS.WIDTH-SD 44.1 % (39-53); WHITE BLOOD COUNT 6.6 K/uL (4.1-10.2)
[2017-07-16 13:34] LABS: ALBUMIN 3.5 G/DL (3.2-4.8); CHLORIDE 114 MEQ/L (99-109); SODIUM 141 MEQ/L (136-147); TOTAL BILIRUBIN 0.3 MG/DL (0.0-1.0)
[2017-07-16 13:40] LABS: ALKALINE PHOSPHATASE 62 IU/L (3-129); ALT (GPT) 45 IU/L (3-49); AST (GOT) 30 IU/L (2-34); CREATININE 1.2 MG/DL (0.6-1.3); GFR ESTIMATE (CALCULATED) 56 mL/min/; GLUCOSE 91 mg/dL (70-99); LIPASE 52 U/L (1.0-51.0); TOTAL PROTEIN 5.9 G/DL (6.4-8.3); UREA NITROGEN (BUN) 13 mg/dL (9-23)
[2017-07-16 13:49] LABS: QUANTITATIVE HCG < 4.0 MIU/ML
[2017-07-16 14:43] LABS: APPEARANCE CLEAR ((CLEAR)); BILIRUBIN NEGATIVE; BLOOD NEGATIVE; COLOR AMBER ((YELLOW)); GLUCOSE (STRIP) NEGATIVE; KETONES NEGATIVE; LEUKOCYTES NEGATIVE; NITRITE NEGATIVE; PROTEIN (STRIP) 30; SPECIFIC GRAVITY 1.032 (1.000-1.030); UCUL ADDED? NO
[2017-07-16 16:17] VITALS: BP 144/71
== END 2017-07-16 16:25 | disposition home or self-care (01) ==
LOC: EME 12:16
PROVIDERS: Physician Assistant
DX: G89.18 Other acute postprocedural pain (principal); R11.0 Nausea; Z90.49 Acquired absence of other specified parts of digestive tract; F32.9 Major depressive disorder, single episode, unspecified; J45.909 Unspecified asthma, uncomplicated; K21.9 Gastro-esophageal reflux disease without esophagitis; F41.9 Anxiety disorder, unspecified; K58.9 Irritable bowel syndrome, unspecified; M79.7 Fibromyalgia; Z88.5 Allergy status to narcotic agent
CPT/HCPCS: 74177; 80053; 81003; 83690; 84702; 85027; 99281; 99285; J2405; J3010; J7030

== ENCOUNTER 2017-08-22 19:36 | Emergency (ER) | payer OTHER ==
[~2017-08-22] VITALS: Ht 180.3 cm; Wt 175.4 kg
[2017-08-22 19:52] LABS: HEMATOCRIT 43.5 % (36.0-46.0); HEMOGLOBIN 13.9 G/DL (11.9-15.5); MCH 29.6 PG (29.0-34.0); MCV 92.6 FL (83-99); PLATELET COUNT 179 K/uL (156-360); RBC DIS.WIDTH-SD 47.8 % (39-53); WHITE BLOOD COUNT 6.1 K/uL (4.1-10.2)
[2017-08-22 20:14] LABS: APPEARANCE SL.HAZY ((CLEAR)); BILIRUBIN SMALL; BLOOD NEGATIVE; COLOR AMBER ((YELLOW)); GLUCOSE (STRIP) NEGATIVE; KETONES NEGATIVE; LEUKOCYTES TRACE; NITRITE NEGATIVE; PROTEIN (STRIP) 30; SPECIFIC GRAVITY 1.033 (1.000-1.030)
[2017-08-22 20:19] LABS: ALBUMIN 3.5 g/dL (3.2-4.8); CHLORIDE 114 mEq/L (99-109); POTASSIUM 3.8 mEq/L (3.7-5.4); SODIUM 141 mEq/L (136-147)
[2017-08-22 20:21] LABS: GLUCOSE 103 mg/dL (70-99); TOTAL PROTEIN 5.9 g/dL (6.4-8.3)
[2017-08-22 20:23] LABS: TOTAL BILIRUBIN 0.3 mg/dL (0.0-1.0)
[2017-08-22 20:25] LABS: ALKALINE PHOSPHATASE 66 IU/L (3-129); CREATININE 1.1 mg/dL (0.6-1.3); GFR ESTIMATE (CALCULATED) > 59 mL/min/
[2017-08-22 20:26] LABS: UREA NITROGEN (BUN) 16 mg/dL (9-23)
[2017-08-22 20:27] LABS: AST (GOT) 44 IU/L (2-34)
[2017-08-22 20:28] LABS: ALT (GPT) 134 IU/L (3-49); LIPASE 116 U/L (1.0-51.0)
[2017-08-22 20:38] LABS: QUANTITATIVE HCG < 4.0 MIU/ML
[2017-08-22 20:54] LABS: RED BLOOD CELLS 0-5 /HPF (0-5)
[2017-08-22 20:55] LABS: BACTERIA RARE /HPF; CALCIUM OXALATE CRYSTALS 3+ /HPF; EPITHELIAL CELLS 1+ /HPF; MUCUS 3+ /LPF; UCUL ADDED? YES
[2017-08-22 23:38] VITALS: BP 106/76
== END 2017-08-22 23:49 | disposition home or self-care (01) ==
LOC: RME 19:36 → EME 19:36 → RME 23:49
DX: R10.13 Epigastric pain (principal); R10.11 Right upper quadrant pain; R11.2 Nausea with vomiting, unspecified; K59.00 Constipation, unspecified; R39.11 Hesitancy of micturition; R53.83 Other fatigue; Z90.49 Acquired absence of other specified parts of digestive tract; J45.909 Unspecified asthma, uncomplicated
CPT/HCPCS: 74022; 76705; 80053; 81003; 83690; 84702; 85027; 87086; 99281; 99284

== ENCOUNTER 2017-09-17 19:59 | Emergency (ER) | payer OTHER ==
[~2017-09-17] VITALS: Ht 180.3 cm; Wt 171.8 kg
[2017-09-17] MEDS ORDERED: VIBRAMYCIN100 MG PO (22:00)
[2017-09-17 22:43] VITALS: BP 107/62
== END 2017-09-17 22:47 | disposition home or self-care (01) ==
LOC: EXP 19:59 → EME 19:59 → EXP 22:47
DX: H60.12 Cellulitis of left external ear (principal); R68.84 Jaw pain; J45.909 Unspecified asthma, uncomplicated
CPT/HCPCS: 87070; 87205; 99281; 99283

== ENCOUNTER 2017-09-18 20:01 | Emergency (ER) | payer OTHER ==
[~2017-09-18] VITALS: Ht 180.3 cm; Wt 171.0 kg
[~2017-09-18 20:01] MED LIST changes: +VIBRAMYCIN100 MG PO
[2017-09-18 20:03] VITALS: BP 115/96
[2017-09-18 21:18] LABS: APPEARANCE SL.HAZY ((CLEAR)); BILIRUBIN NEGATIVE; BLOOD NEGATIVE; COLOR YELLOW ((YELLOW)); GLUCOSE (STRIP) NEGATIVE; KETONES NEGATIVE; LEUKOCYTES NEGATIVE; NITRITE NEGATIVE; PROTEIN (STRIP) 30; SPECIFIC GRAVITY 1.033 (1.000-1.030)
[2017-09-18 21:28] LABS: BACTERIA NONE SEEN /HPF; CALCIUM OXALATE CRYSTALS 4+ /HPF; EPITHELIAL CELLS RARE /HPF; MUCUS 1+ /LPF; RED BLOOD CELLS 0-5 /HPF (0-5); WHITE BLOOD CELLS 0-5 /HPF (0-5)
== END 2017-09-18 22:32 | disposition home or self-care (01) ==
LOC: EME 20:01
PROVIDERS: Physician Assistant
DX: H60.12 Cellulitis of left external ear (principal); R30.0 Dysuria; Z88.5 Allergy status to narcotic agent; Z88.8 Allergy status to other drugs, medicaments and biological substances
CPT/HCPCS: 81003; 87086; 99281; 99284

== ENCOUNTER 2017-09-22 18:11 | Emergency (ER) | payer OTHER ==
[~2017-09-22] VITALS: Ht 180.3 cm; Wt 169.7 kg
[2017-09-22 19:50] LABS: HEMATOCRIT 44.8 % (36.0-46.0); MCH 29.9 PG (29.0-34.0); MCHC 33.5 G/DL (30.0-36.0); MCV 89.2 FL (83-99); PLATELET COUNT 223 K/uL (156-360); RBC DIS.WIDTH-CV 13.8 % (11.8-14.6); RBC DIS.WIDTH-SD 44.9 % (39-53); RED BLOOD COUNT 5.02 M/uL (3.80-5.20); WHITE BLOOD COUNT 8.1 K/uL (4.1-10.2)
[2017-09-22 19:59] LABS: CHLORIDE 114 mEq/L (99-109); POTASSIUM 4.2 mEq/L (3.7-5.4); SODIUM 139 mEq/L (136-147)
[2017-09-22 20:00] LABS: GLUCOSE 87 mg/dL (70-99)
[2017-09-22 20:04] LABS: CREATININE 1.2 mg/dL (0.6-1.3); GFR ESTIMATE (CALCULATED) 56 mL/min/
[2017-09-22 20:05] LABS: UREA NITROGEN (BUN) 35 mg/dL (9-23)
[2017-09-22 20:12] LABS: QUANTITATIVE HCG < 4.0 MIU/ML
[2017-09-22] MEDS ORDERED: CIPRO500 MG PO (23:14)
[2017-09-22] MEDS ORDERED: PREDNISONE10 M1 PO (23:14)
[2017-09-22 23:33] VITALS: BP 134/86
== END 2017-09-22 23:34 | disposition home or self-care (01) ==
LOC: EME 18:11
PROVIDERS: Physician Assistant
DX: H61.032 Chondritis of left external ear (principal); G89.29 Other chronic pain; R10.9 Unspecified abdominal pain; Z79.891 Long term (current) use of opiate analgesic; Z87.891 Personal history of nicotine dependence; Z86.19 Personal history of other infectious and parasitic diseases; Z98.890 Other specified postprocedural states; Z91.018 Allergy to other foods; Z88.5 Allergy status to narcotic agent; Z88.8 Allergy status to other drugs, medicaments and biological substances
CPT/HCPCS: 70487; 80048; 84702; 85027; 99281; 99284; J7030

== ENCOUNTER 2017-10-01 18:17 | Emergency (ER) | payer OTHER ==
[~2017-10-01] VITALS: Ht 180.3 cm; Wt 168.1 kg
[~2017-10-01 18:17] MED LIST changes: +CIPRO500 MG PO; +PREDNISONE10 M1 PO
[2017-10-01] MEDS ORDERED: MEDROL DOSEPAK4 MG PO (21:18)
[2017-10-01] MEDS ORDERED: CIPRO500 MG PO (21:18)
[2017-10-01 21:43] VITALS: BP 146/87
== END 2017-10-01 21:44 | disposition home or self-care (01) ==
LOC: EME 18:17
DX: H61.032 Chondritis of left external ear (principal); K21.9 Gastro-esophageal reflux disease without esophagitis; J45.909 Unspecified asthma, uncomplicated; F41.9 Anxiety disorder, unspecified; F32.9 Major depressive disorder, single episode, unspecified; Z87.891 Personal history of nicotine dependence; Z90.49 Acquired absence of other specified parts of digestive tract; Z88.5 Allergy status to narcotic agent; Z88.8 Allergy status to other drugs, medicaments and biological substances
CPT/HCPCS: 99281; 99283